=== PATIENT | male | born 1955 ===

== ENCOUNTER 2021-11-10 01:21 | Day surgery (SDC) | payer MEDICARE | END 2021-11-10 23:04 | disposition home or self-care (01) | LOC: WOUND 01:21 | DX: E11.622 Type 2 diabetes mellitus with other skin ulcer (principal); L97.825 Non-pressure chronic ulcer of other part of left lower leg with muscle involvement without evidence of necrosis; L97.222 Non-pressure chronic ulcer of left calf with fat layer exposed; I87.312 Chronic venous hypertension (idiopathic) with ulcer of left lower extremity; E11.59 Type 2 diabetes mellitus with other circulatory complications; G35 Multiple sclerosis; I87.2 Venous insufficiency (chronic) (peripheral) | CPT/HCPCS: A9270; Q4133 ==

== ENCOUNTER 2021-11-17 01:30 | Day surgery (SDC) | payer MEDICARE | END 2021-11-17 23:36 | disposition home or self-care (01) | LOC: WOUND 01:30 | DX: E11.621 Type 2 diabetes mellitus with foot ulcer (principal); L97.822 Non-pressure chronic ulcer of other part of left lower leg with fat layer exposed; I87.312 Chronic venous hypertension (idiopathic) with ulcer of left lower extremity; L97.222 Non-pressure chronic ulcer of left calf with fat layer exposed; E11.59 Type 2 diabetes mellitus with other circulatory complications; G35 Multiple sclerosis; I87.2 Venous insufficiency (chronic) (peripheral) | CPT/HCPCS: A9270; Q4133 ==

== ENCOUNTER 2021-11-24 02:13 | Day surgery (SDC) | payer MEDICARE | END 2021-11-24 23:22 | disposition home or self-care (01) | LOC: WOUND 02:13 | DX: E11.622 Type 2 diabetes mellitus with other skin ulcer (principal); I87.312 Chronic venous hypertension (idiopathic) with ulcer of left lower extremity; L97.222 Non-pressure chronic ulcer of left calf with fat layer exposed; E11.621 Type 2 diabetes mellitus with foot ulcer; L97.522 Non-pressure chronic ulcer of other part of left foot with fat layer exposed; G35 Multiple sclerosis; I87.2 Venous insufficiency (chronic) (peripheral); E11.59 Type 2 diabetes mellitus with other circulatory complications | CPT/HCPCS: A9270; Q4133 ==

== ENCOUNTER 2021-12-01 03:47 | Day surgery (SDC) | payer MEDICARE | END 2021-12-01 22:44 | disposition home or self-care (01) | LOC: WOUND 03:47 | DX: E11.622 Type 2 diabetes mellitus with other skin ulcer (principal); L97.822 Non-pressure chronic ulcer of other part of left lower leg with fat layer exposed; I87.312 Chronic venous hypertension (idiopathic) with ulcer of left lower extremity; E11.59 Type 2 diabetes mellitus with other circulatory complications; L97.222 Non-pressure chronic ulcer of left calf with fat layer exposed; E11.621 Type 2 diabetes mellitus with foot ulcer; L97.522 Non-pressure chronic ulcer of other part of left foot with fat layer exposed; G35 Multiple sclerosis; I87.2 Venous insufficiency (chronic) (peripheral) | CPT/HCPCS: A9270; Q4133 ==

== ENCOUNTER 2021-12-08 06:41 | Day surgery (SDC) | payer MEDICARE | END 2021-12-08 23:26 | disposition home or self-care (01) | LOC: WOUND 06:41 | DX: E11.622 Type 2 diabetes mellitus with other skin ulcer (principal); L97.822 Non-pressure chronic ulcer of other part of left lower leg with fat layer exposed; I87.312 Chronic venous hypertension (idiopathic) with ulcer of left lower extremity; L97.222 Non-pressure chronic ulcer of left calf with fat layer exposed; E11.59 Type 2 diabetes mellitus with other circulatory complications; G35 Multiple sclerosis; I87.2 Venous insufficiency (chronic) (peripheral) | CPT/HCPCS: A9270; Q4133 ==

== ENCOUNTER 2021-12-15 07:40 | Day surgery (SDC) | payer MEDICARE | END 2021-12-15 23:34 | disposition home or self-care (01) | LOC: WOUND 07:40 | DX: E11.622 Type 2 diabetes mellitus with other skin ulcer (principal); L97.822 Non-pressure chronic ulcer of other part of left lower leg with fat layer exposed; G35 Multiple sclerosis; I87.2 Venous insufficiency (chronic) (peripheral); I87.312 Chronic venous hypertension (idiopathic) with ulcer of left lower extremity | CPT/HCPCS: A9270; Q4133 ==

== ENCOUNTER 2022-01-05 02:02 | Day surgery (SDC) | payer MEDICARE, OTHER | END 2022-01-05 23:24 | disposition home or self-care (01) | LOC: WOUND 02:02 | DX: I87.313 Chronic venous hypertension (idiopathic) with ulcer of bilateral lower extremity (principal); L97.325 Non-pressure chronic ulcer of left ankle with muscle involvement without evidence of necrosis; L97.222 Non-pressure chronic ulcer of left calf with fat layer exposed; L97.812 Non-pressure chronic ulcer of other part of right lower leg with fat layer exposed; E11.622 Type 2 diabetes mellitus with other skin ulcer; I87.2 Venous insufficiency (chronic) (peripheral); E11.59 Type 2 diabetes mellitus with other circulatory complications; G35 Multiple sclerosis | CPT/HCPCS: A9270; Q4133 ==

== ENCOUNTER 2022-01-12 04:12 | Day surgery (SDC) | payer MEDICARE, OTHER | END 2022-01-12 22:50 | disposition home or self-care (01) | LOC: WOUND 04:12 | DX: I87.313 Chronic venous hypertension (idiopathic) with ulcer of bilateral lower extremity (principal); L97.222 Non-pressure chronic ulcer of left calf with fat layer exposed; L97.812 Non-pressure chronic ulcer of other part of right lower leg with fat layer exposed; L97.325 Non-pressure chronic ulcer of left ankle with muscle involvement without evidence of necrosis; E11.622 Type 2 diabetes mellitus with other skin ulcer; I87.2 Venous insufficiency (chronic) (peripheral); E11.59 Type 2 diabetes mellitus with other circulatory complications; G35 Multiple sclerosis | CPT/HCPCS: Q4133 ==

== ENCOUNTER 2022-01-19 02:44 | Day surgery (SDC) | payer MEDICARE, OTHER | END 2022-01-19 22:43 | disposition home or self-care (01) | LOC: WOUND 02:44 | DX: E11.622 Type 2 diabetes mellitus with other skin ulcer (principal); I87.312 Chronic venous hypertension (idiopathic) with ulcer of left lower extremity; L97.825 Non-pressure chronic ulcer of other part of left lower leg with muscle involvement without evidence of necrosis; I87.2 Venous insufficiency (chronic) (peripheral); E11.59 Type 2 diabetes mellitus with other circulatory complications; G35 Multiple sclerosis; Z86.718 Personal history of other venous thrombosis and embolism; Z87.2 Personal history of diseases of the skin and subcutaneous tissue | CPT/HCPCS: A9270; Q4133 ==

== ENCOUNTER 2022-01-26 02:23 | Day surgery (SDC) | payer MEDICARE, OTHER | END 2022-01-26 22:48 | disposition home or self-care (01) | LOC: WOUND 02:23 | DX: E11.622 Type 2 diabetes mellitus with other skin ulcer (principal); L97.822 Non-pressure chronic ulcer of other part of left lower leg with fat layer exposed; G35 Multiple sclerosis; I87.313 Chronic venous hypertension (idiopathic) with ulcer of bilateral lower extremity; L97.222 Non-pressure chronic ulcer of left calf with fat layer exposed; L97.812 Non-pressure chronic ulcer of other part of right lower leg with fat layer exposed; L97.325 Non-pressure chronic ulcer of left ankle with muscle involvement without evidence of necrosis | CPT/HCPCS: 11104 ==

== ENCOUNTER 2022-02-03 03:58 | Day surgery (SDC) | payer MEDICARE, OTHER | END 2022-02-03 22:48 | disposition home or self-care (01) | LOC: WOUND 03:58 | DX: E11.622 Type 2 diabetes mellitus with other skin ulcer (principal); I87.313 Chronic venous hypertension (idiopathic) with ulcer of bilateral lower extremity; L97.222 Non-pressure chronic ulcer of left calf with fat layer exposed; L97.212 Non-pressure chronic ulcer of right calf with fat layer exposed; L97.825 Non-pressure chronic ulcer of other part of left lower leg with muscle involvement without evidence of necrosis; L97.325 Non-pressure chronic ulcer of left ankle with muscle involvement without evidence of necrosis; I87.2 Venous insufficiency (chronic) (peripheral); E11.59 Type 2 diabetes mellitus with other circulatory complications; G35 Multiple sclerosis; Z86.718 Personal history of other venous thrombosis and embolism | CPT/HCPCS: 87070; 87075; 87205 ==

== ENCOUNTER 2022-02-09 02:15 | Day surgery (SDC) | payer MEDICARE, OTHER | END 2022-02-09 23:21 | disposition home or self-care (01) | LOC: WOUND 02:15 | DX: E11.622 Type 2 diabetes mellitus with other skin ulcer (principal); I87.313 Chronic venous hypertension (idiopathic) with ulcer of bilateral lower extremity; L97.222 Non-pressure chronic ulcer of left calf with fat layer exposed; L97.812 Non-pressure chronic ulcer of other part of right lower leg with fat layer exposed; L97.325 Non-pressure chronic ulcer of left ankle with muscle involvement without evidence of necrosis; I87.2 Venous insufficiency (chronic) (peripheral); E11.59 Type 2 diabetes mellitus with other circulatory complications; G35 Multiple sclerosis ==

== ENCOUNTER 2022-02-16 02:25 | Day surgery (SDC) | payer MEDICARE, OTHER | END 2022-02-16 23:07 | disposition home or self-care (01) | LOC: WOUND 02:25 | DX: E11.622 Type 2 diabetes mellitus with other skin ulcer (principal); L97.822 Non-pressure chronic ulcer of other part of left lower leg with fat layer exposed; I87.313 Chronic venous hypertension (idiopathic) with ulcer of bilateral lower extremity; L97.222 Non-pressure chronic ulcer of left calf with fat layer exposed; L97.812 Non-pressure chronic ulcer of other part of right lower leg with fat layer exposed; L97.325 Non-pressure chronic ulcer of left ankle with muscle involvement without evidence of necrosis; I87.2 Venous insufficiency (chronic) (peripheral); G35 Multiple sclerosis ==

== ENCOUNTER 2022-02-23 02:04 | Day surgery (SDC) | payer MEDICARE, OTHER | END 2022-02-23 23:04 | disposition home or self-care (01) | LOC: WOUND 02:04 | DX: E11.622 Type 2 diabetes mellitus with other skin ulcer (principal); I87.2 Venous insufficiency (chronic) (peripheral); L97.822 Non-pressure chronic ulcer of other part of left lower leg with fat layer exposed; I87.313 Chronic venous hypertension (idiopathic) with ulcer of bilateral lower extremity; L97.222 Non-pressure chronic ulcer of left calf with fat layer exposed; L97.325 Non-pressure chronic ulcer of left ankle with muscle involvement without evidence of necrosis; E11.59 Type 2 diabetes mellitus with other circulatory complications; G35 Multiple sclerosis | CPT/HCPCS: G0463 ==

== ENCOUNTER 2022-03-02 02:27 | Day surgery (SDC) | payer MEDICARE, OTHER | END 2022-03-02 22:59 | disposition home or self-care (01) | LOC: WOUND 02:27 | DX: E11.622 Type 2 diabetes mellitus with other skin ulcer (principal); L97.822 Non-pressure chronic ulcer of other part of left lower leg with fat layer exposed; I87.313 Chronic venous hypertension (idiopathic) with ulcer of bilateral lower extremity; L97.222 Non-pressure chronic ulcer of left calf with fat layer exposed; L97.812 Non-pressure chronic ulcer of other part of right lower leg with fat layer exposed; L97.325 Non-pressure chronic ulcer of left ankle with muscle involvement without evidence of necrosis; I87.2 Venous insufficiency (chronic) (peripheral); G35 Multiple sclerosis | CPT/HCPCS: G0463 ==

== ENCOUNTER 2022-03-11 00:27 | Day surgery (SDC) | payer MEDICARE, OTHER | END 2022-03-11 23:01 | disposition home or self-care (01) | LOC: WOUND 00:27 | DX: I87.313 Chronic venous hypertension (idiopathic) with ulcer of bilateral lower extremity (principal); E11.622 Type 2 diabetes mellitus with other skin ulcer; L97.222 Non-pressure chronic ulcer of left calf with fat layer exposed; L97.812 Non-pressure chronic ulcer of other part of right lower leg with fat layer exposed; L97.325 Non-pressure chronic ulcer of left ankle with muscle involvement without evidence of necrosis; I87.2 Venous insufficiency (chronic) (peripheral); E11.59 Type 2 diabetes mellitus with other circulatory complications; G35 Multiple sclerosis ==

== ENCOUNTER 2022-03-15 02:45 | Day surgery (SDC) | payer MEDICARE, OTHER | END 2022-03-15 22:59 | disposition home or self-care (01) | LOC: WOUND 02:45 | DX: E11.622 Type 2 diabetes mellitus with other skin ulcer (principal); I87.313 Chronic venous hypertension (idiopathic) with ulcer of bilateral lower extremity; L97.222 Non-pressure chronic ulcer of left calf with fat layer exposed; L97.812 Non-pressure chronic ulcer of other part of right lower leg with fat layer exposed; L97.325 Non-pressure chronic ulcer of left ankle with muscle involvement without evidence of necrosis; I87.2 Venous insufficiency (chronic) (peripheral); E11.59 Type 2 diabetes mellitus with other circulatory complications; G35 Multiple sclerosis | CPT/HCPCS: A9270 ==

== ENCOUNTER 2022-03-18 01:16 | Day surgery (SDC) | payer MEDICARE, OTHER | END 2022-03-18 23:02 | disposition home or self-care (01) | LOC: WOUND 01:16 | DX: E11.622 Type 2 diabetes mellitus with other skin ulcer (principal); L97.825 Non-pressure chronic ulcer of other part of left lower leg with muscle involvement without evidence of necrosis; I87.313 Chronic venous hypertension (idiopathic) with ulcer of bilateral lower extremity; L97.212 Non-pressure chronic ulcer of right calf with fat layer exposed; I87.2 Venous insufficiency (chronic) (peripheral); E11.59 Type 2 diabetes mellitus with other circulatory complications; G35 Multiple sclerosis ==

== ENCOUNTER 2022-03-25 02:09 | Day surgery (SDC) | payer MEDICARE, OTHER | END 2022-03-26 23:29 | disposition home or self-care (01) | LOC: WOUND 02:09 | DX: E11.622 Type 2 diabetes mellitus with other skin ulcer (principal); L97.822 Non-pressure chronic ulcer of other part of left lower leg with fat layer exposed; I87.313 Chronic venous hypertension (idiopathic) with ulcer of bilateral lower extremity; L97.222 Non-pressure chronic ulcer of left calf with fat layer exposed; L97.812 Non-pressure chronic ulcer of other part of right lower leg with fat layer exposed; G35 Multiple sclerosis ==

== ENCOUNTER 2022-04-01 00:10 | Day surgery (SDC) | payer MEDICARE, OTHER | END 2022-04-01 23:28 | disposition home or self-care (01) | LOC: WOUND 00:10 | DX: E11.622 Type 2 diabetes mellitus with other skin ulcer (principal); I87.313 Chronic venous hypertension (idiopathic) with ulcer of bilateral lower extremity; L97.222 Non-pressure chronic ulcer of left calf with fat layer exposed; L97.812 Non-pressure chronic ulcer of other part of right lower leg with fat layer exposed; L97.325 Non-pressure chronic ulcer of left ankle with muscle involvement without evidence of necrosis; I87.2 Venous insufficiency (chronic) (peripheral); E11.59 Type 2 diabetes mellitus with other circulatory complications; G35 Multiple sclerosis ==

== ENCOUNTER 2022-04-13 04:14 | Day surgery (SDC) | payer MEDICARE, OTHER | END 2022-04-13 22:59 | disposition home or self-care (01) | LOC: WOUND 04:14 | DX: E11.622 Type 2 diabetes mellitus with other skin ulcer (principal); L97.825 Non-pressure chronic ulcer of other part of left lower leg with muscle involvement without evidence of necrosis; I87.313 Chronic venous hypertension (idiopathic) with ulcer of bilateral lower extremity; L97.222 Non-pressure chronic ulcer of left calf with fat layer exposed; L97.812 Non-pressure chronic ulcer of other part of right lower leg with fat layer exposed; L97.325 Non-pressure chronic ulcer of left ankle with muscle involvement without evidence of necrosis; I87.2 Venous insufficiency (chronic) (peripheral); E11.59 Type 2 diabetes mellitus with other circulatory complications; G35 Multiple sclerosis | CPT/HCPCS: A9270; G0463 ==

== ENCOUNTER 2022-04-20 05:34 | Day surgery (SDC) | payer MEDICARE, OTHER | END 2022-04-20 22:59 | disposition home or self-care (01) | LOC: WOUND 05:34 | DX: E11.621 Type 2 diabetes mellitus with foot ulcer (principal); L97.522 Non-pressure chronic ulcer of other part of left foot with fat layer exposed; L97.525 Non-pressure chronic ulcer of other part of left foot with muscle involvement without evidence of necrosis; L97.812 Non-pressure chronic ulcer of other part of right lower leg with fat layer exposed; I87.313 Chronic venous hypertension (idiopathic) with ulcer of bilateral lower extremity; I87.2 Venous insufficiency (chronic) (peripheral); E11.59 Type 2 diabetes mellitus with other circulatory complications; G35 Multiple sclerosis ==

== ENCOUNTER 2022-04-29 01:48 | Day surgery (SDC) | payer MEDICARE, OTHER | END 2022-04-29 22:41 | disposition home or self-care (01) | LOC: WOUND 01:48 | DX: E11.622 Type 2 diabetes mellitus with other skin ulcer (principal); L97.222 Non-pressure chronic ulcer of left calf with fat layer exposed; L97.812 Non-pressure chronic ulcer of other part of right lower leg with fat layer exposed; L97.325 Non-pressure chronic ulcer of left ankle with muscle involvement without evidence of necrosis; I87.2 Venous insufficiency (chronic) (peripheral); E11.59 Type 2 diabetes mellitus with other circulatory complications; G35 Multiple sclerosis; I87.313 Chronic venous hypertension (idiopathic) with ulcer of bilateral lower extremity | CPT/HCPCS: A9270 ==

== ENCOUNTER 2022-05-11 00:43 | Day surgery (SDC) | payer MEDICARE, OTHER | END 2022-05-11 22:43 | disposition home or self-care (01) | LOC: WOUND 00:43 | DX: E11.622 Type 2 diabetes mellitus with other skin ulcer (principal); L97.822 Non-pressure chronic ulcer of other part of left lower leg with fat layer exposed; I87.313 Chronic venous hypertension (idiopathic) with ulcer of bilateral lower extremity; L97.222 Non-pressure chronic ulcer of left calf with fat layer exposed; L97.325 Non-pressure chronic ulcer of left ankle with muscle involvement without evidence of necrosis; I87.2 Venous insufficiency (chronic) (peripheral); E11.59 Type 2 diabetes mellitus with other circulatory complications; G35 Multiple sclerosis | CPT/HCPCS: A9270 ==

== ENCOUNTER 2022-05-18 08:00 | Day surgery (SDC) | payer MEDICARE, OTHER | END 2022-05-18 23:59 | disposition home or self-care (01) | LOC: WOUND 08:00 | DX: E11.622 Type 2 diabetes mellitus with other skin ulcer (principal); I87.313 Chronic venous hypertension (idiopathic) with ulcer of bilateral lower extremity; I87.2 Venous insufficiency (chronic) (peripheral); L97.822 Non-pressure chronic ulcer of other part of left lower leg with fat layer exposed; L97.222 Non-pressure chronic ulcer of left calf with fat layer exposed; L97.812 Non-pressure chronic ulcer of other part of right lower leg with fat layer exposed; L97.325 Non-pressure chronic ulcer of left ankle with muscle involvement without evidence of necrosis; E11.59 Type 2 diabetes mellitus with other circulatory complications; G35 Multiple sclerosis | CPT/HCPCS: A9270 ==

== ENCOUNTER 2022-06-01 01:27 | Day surgery (SDC) | payer MEDICARE, OTHER | END 2022-06-01 22:43 | disposition home or self-care (01) | LOC: WOUND 01:27 | DX: E11.622 Type 2 diabetes mellitus with other skin ulcer (principal); I87.2 Venous insufficiency (chronic) (peripheral); L97.822 Non-pressure chronic ulcer of other part of left lower leg with fat layer exposed; I87.313 Chronic venous hypertension (idiopathic) with ulcer of bilateral lower extremity; L97.222 Non-pressure chronic ulcer of left calf with fat layer exposed; L97.812 Non-pressure chronic ulcer of other part of right lower leg with fat layer exposed; L97.325 Non-pressure chronic ulcer of left ankle with muscle involvement without evidence of necrosis; E11.59 Type 2 diabetes mellitus with other circulatory complications; G35 Multiple sclerosis ==

== ENCOUNTER 2022-06-09 09:06 | Day surgery (SDC) | payer MEDICARE, OTHER | END 2022-06-09 22:34 | disposition home or self-care (01) | LOC: WOUND 09:06 | DX: E11.622 Type 2 diabetes mellitus with other skin ulcer (principal); L97.822 Non-pressure chronic ulcer of other part of left lower leg with fat layer exposed; I87.313 Chronic venous hypertension (idiopathic) with ulcer of bilateral lower extremity; L97.222 Non-pressure chronic ulcer of left calf with fat layer exposed; L97.812 Non-pressure chronic ulcer of other part of right lower leg with fat layer exposed; L97.325 Non-pressure chronic ulcer of left ankle with muscle involvement without evidence of necrosis; I87.2 Venous insufficiency (chronic) (peripheral); G35 Multiple sclerosis ==

== ENCOUNTER 2022-06-15 01:57 | Day surgery (SDC) | payer MEDICARE, OTHER | END 2022-06-15 22:35 | disposition home or self-care (01) | LOC: WOUND 01:57 | DX: E11.622 Type 2 diabetes mellitus with other skin ulcer (principal); L97.822 Non-pressure chronic ulcer of other part of left lower leg with fat layer exposed; G35 Multiple sclerosis; I87.313 Chronic venous hypertension (idiopathic) with ulcer of bilateral lower extremity; L97.222 Non-pressure chronic ulcer of left calf with fat layer exposed; I87.2 Venous insufficiency (chronic) (peripheral) | CPT/HCPCS: G0463 ==

== ENCOUNTER 2022-06-22 00:46 | Day surgery (SDC) | payer MEDICARE, OTHER | END 2022-06-22 22:57 | disposition home or self-care (01) | LOC: WOUND 00:46 | DX: E11.622 Type 2 diabetes mellitus with other skin ulcer (principal); L97.822 Non-pressure chronic ulcer of other part of left lower leg with fat layer exposed; I87.313 Chronic venous hypertension (idiopathic) with ulcer of bilateral lower extremity; L97.222 Non-pressure chronic ulcer of left calf with fat layer exposed; L97.325 Non-pressure chronic ulcer of left ankle with muscle involvement without evidence of necrosis; I87.2 Venous insufficiency (chronic) (peripheral); G35 Multiple sclerosis ==

== ENCOUNTER 2022-06-30 01:47 | Day surgery (SDC) | payer MEDICARE, OTHER | END 2022-06-30 22:34 | disposition home or self-care (01) | LOC: WOUND 01:47 | DX: E11.622 Type 2 diabetes mellitus with other skin ulcer (principal); I87.313 Chronic venous hypertension (idiopathic) with ulcer of bilateral lower extremity; L97.222 Non-pressure chronic ulcer of left calf with fat layer exposed; L97.812 Non-pressure chronic ulcer of other part of right lower leg with fat layer exposed; L97.325 Non-pressure chronic ulcer of left ankle with muscle involvement without evidence of necrosis; I87.2 Venous insufficiency (chronic) (peripheral); E11.59 Type 2 diabetes mellitus with other circulatory complications; G35 Multiple sclerosis ==

== ENCOUNTER 2022-07-13 02:24 | Day surgery (SDC) | payer MEDICARE, OTHER | END 2022-07-13 22:39 | disposition home or self-care (01) | LOC: WOUND 02:24 | DX: E11.622 Type 2 diabetes mellitus with other skin ulcer (principal); I87.313 Chronic venous hypertension (idiopathic) with ulcer of bilateral lower extremity; L97.825 Non-pressure chronic ulcer of other part of left lower leg with muscle involvement without evidence of necrosis; L97.222 Non-pressure chronic ulcer of left calf with fat layer exposed; L97.812 Non-pressure chronic ulcer of other part of right lower leg with fat layer exposed; L97.325 Non-pressure chronic ulcer of left ankle with muscle involvement without evidence of necrosis; I87.2 Venous insufficiency (chronic) (peripheral); E11.59 Type 2 diabetes mellitus with other circulatory complications; G35 Multiple sclerosis | CPT/HCPCS: Q4196 ==

== ENCOUNTER 2022-07-20 01:20 | Day surgery (SDC) | payer MEDICARE, OTHER | END 2022-07-20 22:59 | disposition home or self-care (01) | LOC: WOUND 01:20 | DX: E11.622 Type 2 diabetes mellitus with other skin ulcer (principal); I87.313 Chronic venous hypertension (idiopathic) with ulcer of bilateral lower extremity; L97.222 Non-pressure chronic ulcer of left calf with fat layer exposed; L97.812 Non-pressure chronic ulcer of other part of right lower leg with fat layer exposed; L97.325 Non-pressure chronic ulcer of left ankle with muscle involvement without evidence of necrosis; G35 Multiple sclerosis; I87.2 Venous insufficiency (chronic) (peripheral); E11.59 Type 2 diabetes mellitus with other circulatory complications | CPT/HCPCS: Q4196 ==

== ENCOUNTER 2022-07-27 02:41 | Day surgery (SDC) | payer MEDICARE, OTHER | END 2022-07-27 23:27 | disposition home or self-care (01) | LOC: WOUND 02:41 | DX: I87.313 Chronic venous hypertension (idiopathic) with ulcer of bilateral lower extremity (principal); E11.622 Type 2 diabetes mellitus with other skin ulcer; L97.222 Non-pressure chronic ulcer of left calf with fat layer exposed; L97.325 Non-pressure chronic ulcer of left ankle with muscle involvement without evidence of necrosis; I87.2 Venous insufficiency (chronic) (peripheral); E11.59 Type 2 diabetes mellitus with other circulatory complications; G35 Multiple sclerosis | CPT/HCPCS: Q4196 ==

== ENCOUNTER 2022-08-10 05:43 | Day surgery (SDC) | payer MEDICARE, OTHER | END 2022-08-10 22:55 | disposition home or self-care (01) | LOC: WOUND 05:43 | DX: E11.622 Type 2 diabetes mellitus with other skin ulcer (principal); L97.823 Non-pressure chronic ulcer of other part of left lower leg with necrosis of muscle; E11.621 Type 2 diabetes mellitus with foot ulcer; L97.522 Non-pressure chronic ulcer of other part of left foot with fat layer exposed; I87.313 Chronic venous hypertension (idiopathic) with ulcer of bilateral lower extremity; L97.222 Non-pressure chronic ulcer of left calf with fat layer exposed; L97.325 Non-pressure chronic ulcer of left ankle with muscle involvement without evidence of necrosis; I87.2 Venous insufficiency (chronic) (peripheral); E11.59 Type 2 diabetes mellitus with other circulatory complications; G35 Multiple sclerosis | CPT/HCPCS: Q4196 ==

== ENCOUNTER 2022-08-24 00:40 | Day surgery (SDC) | payer MEDICARE, OTHER | END 2022-08-24 22:39 | disposition home or self-care (01) | LOC: WOUND 00:40 | DX: E11.622 Type 2 diabetes mellitus with other skin ulcer (principal); L97.822 Non-pressure chronic ulcer of other part of left lower leg with fat layer exposed; I87.313 Chronic venous hypertension (idiopathic) with ulcer of bilateral lower extremity; L97.222 Non-pressure chronic ulcer of left calf with fat layer exposed; L97.325 Non-pressure chronic ulcer of left ankle with muscle involvement without evidence of necrosis; I87.2 Venous insufficiency (chronic) (peripheral); E11.59 Type 2 diabetes mellitus with other circulatory complications; G35 Multiple sclerosis | CPT/HCPCS: Q4196 ==

== ENCOUNTER 2022-08-31 03:48 | Day surgery (SDC) | payer MEDICARE, OTHER | END 2022-08-31 22:50 | disposition home or self-care (01) | LOC: WOUND 03:48 | DX: E11.622 Type 2 diabetes mellitus with other skin ulcer (principal); I87.313 Chronic venous hypertension (idiopathic) with ulcer of bilateral lower extremity; L97.325 Non-pressure chronic ulcer of left ankle with muscle involvement without evidence of necrosis; L97.222 Non-pressure chronic ulcer of left calf with fat layer exposed; I87.2 Venous insufficiency (chronic) (peripheral); E11.59 Type 2 diabetes mellitus with other circulatory complications; G35 Multiple sclerosis | CPT/HCPCS: Q4196 ==

== ENCOUNTER 2022-09-07 03:51 | Day surgery (SDC) | payer MEDICARE, OTHER | END 2022-09-07 22:43 | disposition home or self-care (01) | LOC: WOUND 03:51 | DX: E11.622 Type 2 diabetes mellitus with other skin ulcer (principal); L97.822 Non-pressure chronic ulcer of other part of left lower leg with fat layer exposed; L97.222 Non-pressure chronic ulcer of left calf with fat layer exposed; L97.325 Non-pressure chronic ulcer of left ankle with muscle involvement without evidence of necrosis; I87.2 Venous insufficiency (chronic) (peripheral); E11.59 Type 2 diabetes mellitus with other circulatory complications; G35 Multiple sclerosis; I87.312 Chronic venous hypertension (idiopathic) with ulcer of left lower extremity | CPT/HCPCS: Q4196 ==

== ENCOUNTER → 2022-09-14 | Day surgery (SDC) | payer MEDICARE, OTHER | LOC: WOUND 03:12 | DX: E11.622 Type 2 diabetes mellitus with other skin ulcer (principal); L97.822 Non-pressure chronic ulcer of other part of left lower leg with fat layer exposed; I87.313 Chronic venous hypertension (idiopathic) with ulcer of bilateral lower extremity; L97.325 Non-pressure chronic ulcer of left ankle with muscle involvement without evidence of necrosis; I87.2 Venous insufficiency (chronic) (peripheral); E11.59 Type 2 diabetes mellitus with other circulatory complications; G35 Multiple sclerosis | CPT/HCPCS: Q4196 ==

== ENCOUNTER 2022-10-05 04:42 | Day surgery (SDC) | payer MEDICARE, OTHER | END 2022-10-05 22:41 | disposition home or self-care (01) | LOC: WOUND 04:42 | DX: E11.622 Type 2 diabetes mellitus with other skin ulcer (principal); I87.313 Chronic venous hypertension (idiopathic) with ulcer of bilateral lower extremity; L97.825 Non-pressure chronic ulcer of other part of left lower leg with muscle involvement without evidence of necrosis; L97.222 Non-pressure chronic ulcer of left calf with fat layer exposed; L97.325 Non-pressure chronic ulcer of left ankle with muscle involvement without evidence of necrosis; I87.2 Venous insufficiency (chronic) (peripheral); E11.59 Type 2 diabetes mellitus with other circulatory complications; G35 Multiple sclerosis | CPT/HCPCS: G0463 ==

== ENCOUNTER 2022-10-12 01:53 | Day surgery (SDC) | payer MEDICARE, OTHER | END 2022-10-12 22:46 | disposition home or self-care (01) | LOC: WOUND 01:53 | DX: E11.622 Type 2 diabetes mellitus with other skin ulcer (principal); I87.312 Chronic venous hypertension (idiopathic) with ulcer of left lower extremity; L97.825 Non-pressure chronic ulcer of other part of left lower leg with muscle involvement without evidence of necrosis; L97.222 Non-pressure chronic ulcer of left calf with fat layer exposed; L97.325 Non-pressure chronic ulcer of left ankle with muscle involvement without evidence of necrosis; I87.2 Venous insufficiency (chronic) (peripheral); E11.59 Type 2 diabetes mellitus with other circulatory complications; G35 Multiple sclerosis | CPT/HCPCS: A9270 ==

== ENCOUNTER 2022-10-19 04:13 | Day surgery (SDC) | payer MEDICARE, OTHER | END 2022-10-19 22:58 | disposition home or self-care (01) | LOC: WOUND 04:13 | DX: E11.622 Type 2 diabetes mellitus with other skin ulcer (principal); L97.822 Non-pressure chronic ulcer of other part of left lower leg with fat layer exposed; L97.222 Non-pressure chronic ulcer of left calf with fat layer exposed; I87.312 Chronic venous hypertension (idiopathic) with ulcer of left lower extremity; I87.2 Venous insufficiency (chronic) (peripheral); G35 Multiple sclerosis; E11.59 Type 2 diabetes mellitus with other circulatory complications ==

== ENCOUNTER 2022-10-26 01:30 | Day surgery (SDC) | payer MEDICARE, OTHER | END 2022-10-26 23:10 | disposition home or self-care (01) | LOC: WOUND 01:30 | DX: E11.622 Type 2 diabetes mellitus with other skin ulcer (principal); I87.2 Venous insufficiency (chronic) (peripheral); L97.822 Non-pressure chronic ulcer of other part of left lower leg with fat layer exposed; I87.313 Chronic venous hypertension (idiopathic) with ulcer of bilateral lower extremity; L97.325 Non-pressure chronic ulcer of left ankle with muscle involvement without evidence of necrosis; G35 Multiple sclerosis ==

== ENCOUNTER 2022-11-02 03:00 | Day surgery (SDC) | payer MEDICARE, OTHER | END 2022-11-02 22:35 | disposition home or self-care (01) | LOC: WOUND 03:00 | DX: E11.622 Type 2 diabetes mellitus with other skin ulcer (principal); L97.222 Non-pressure chronic ulcer of left calf with fat layer exposed; L97.325 Non-pressure chronic ulcer of left ankle with muscle involvement without evidence of necrosis; I87.313 Chronic venous hypertension (idiopathic) with ulcer of bilateral lower extremity; I87.2 Venous insufficiency (chronic) (peripheral); E11.59 Type 2 diabetes mellitus with other circulatory complications; G35 Multiple sclerosis ==

== ENCOUNTER 2022-11-09 02:31 | Day surgery (SDC) | payer MEDICARE, OTHER | END 2022-11-09 22:57 | disposition home or self-care (01) | LOC: WOUND 02:31 | DX: E11.622 Type 2 diabetes mellitus with other skin ulcer (principal); L97.822 Non-pressure chronic ulcer of other part of left lower leg with fat layer exposed; I87.2 Venous insufficiency (chronic) (peripheral); G35 Multiple sclerosis; L97.222 Non-pressure chronic ulcer of left calf with fat layer exposed; L97.325 Non-pressure chronic ulcer of left ankle with muscle involvement without evidence of necrosis; I87.312 Chronic venous hypertension (idiopathic) with ulcer of left lower extremity ==

== ENCOUNTER 2022-11-16 05:07 | Day surgery (SDC) | payer MEDICARE, OTHER | END 2022-11-16 22:41 | disposition home or self-care (01) | LOC: WOUND 05:07 | DX: E11.622 Type 2 diabetes mellitus with other skin ulcer (principal); I87.313 Chronic venous hypertension (idiopathic) with ulcer of bilateral lower extremity; L97.222 Non-pressure chronic ulcer of left calf with fat layer exposed; L97.325 Non-pressure chronic ulcer of left ankle with muscle involvement without evidence of necrosis; I87.2 Venous insufficiency (chronic) (peripheral); E11.59 Type 2 diabetes mellitus with other circulatory complications; G35 Multiple sclerosis | CPT/HCPCS: A9270 ==

== ENCOUNTER 2022-11-23 03:03 | Day surgery (SDC) | payer MEDICARE, OTHER | END 2022-11-23 22:47 | disposition home or self-care (01) | LOC: WOUND 03:03 | DX: E11.622 Type 2 diabetes mellitus with other skin ulcer (principal); L97.822 Non-pressure chronic ulcer of other part of left lower leg with fat layer exposed; I87.2 Venous insufficiency (chronic) (peripheral); I87.312 Chronic venous hypertension (idiopathic) with ulcer of left lower extremity; L97.222 Non-pressure chronic ulcer of left calf with fat layer exposed; L97.325 Non-pressure chronic ulcer of left ankle with muscle involvement without evidence of necrosis; E11.59 Type 2 diabetes mellitus with other circulatory complications; G35 Multiple sclerosis ==

== ENCOUNTER 2022-11-30 01:21 | Day surgery (SDC) | payer MEDICARE, OTHER | END 2022-11-30 22:45 | disposition home or self-care (01) | LOC: WOUND 01:21 | DX: I87.313 Chronic venous hypertension (idiopathic) with ulcer of bilateral lower extremity (principal); E11.622 Type 2 diabetes mellitus with other skin ulcer; L97.922 Non-pressure chronic ulcer of unspecified part of left lower leg with fat layer exposed; E11.59 Type 2 diabetes mellitus with other circulatory complications; G35 Multiple sclerosis ==

== ENCOUNTER 2022-12-07 02:09 | Day surgery (SDC) | payer MEDICARE, OTHER | END 2022-12-07 22:57 | disposition home or self-care (01) | LOC: WOUND 02:09 | DX: E11.622 Type 2 diabetes mellitus with other skin ulcer (principal); L97.822 Non-pressure chronic ulcer of other part of left lower leg with fat layer exposed; I87.312 Chronic venous hypertension (idiopathic) with ulcer of left lower extremity; L97.325 Non-pressure chronic ulcer of left ankle with muscle involvement without evidence of necrosis; I87.2 Venous insufficiency (chronic) (peripheral); G35 Multiple sclerosis ==

== ENCOUNTER 2022-12-21 04:46 | Day surgery (SDC) | payer MEDICARE, OTHER | END 2022-12-21 22:43 | disposition home or self-care (01) | LOC: WOUND 04:46 | DX: E11.622 Type 2 diabetes mellitus with other skin ulcer (principal); L97.822 Non-pressure chronic ulcer of other part of left lower leg with fat layer exposed; I87.312 Chronic venous hypertension (idiopathic) with ulcer of left lower extremity; L97.222 Non-pressure chronic ulcer of left calf with fat layer exposed; L97.325 Non-pressure chronic ulcer of left ankle with muscle involvement without evidence of necrosis; I87.2 Venous insufficiency (chronic) (peripheral); E11.59 Type 2 diabetes mellitus with other circulatory complications; G35 Multiple sclerosis ==

== ENCOUNTER 2023-01-04 02:26 | Day surgery (SDC) | payer MEDICARE, OTHER | END 2023-01-04 23:34 | disposition home or self-care (01) | LOC: WOUND 02:26 | DX: E11.622 Type 2 diabetes mellitus with other skin ulcer (principal); L97.822 Non-pressure chronic ulcer of other part of left lower leg with fat layer exposed; I87.313 Chronic venous hypertension (idiopathic) with ulcer of bilateral lower extremity; E11.59 Type 2 diabetes mellitus with other circulatory complications; G35 Multiple sclerosis ==

== ENCOUNTER 2023-01-11 02:38 | Day surgery (SDC) | payer MEDICARE, OTHER | END 2023-01-11 23:05 | disposition home or self-care (01) | LOC: WOUND 02:38 | DX: E11.622 Type 2 diabetes mellitus with other skin ulcer (principal); L97.822 Non-pressure chronic ulcer of other part of left lower leg with fat layer exposed; I87.313 Chronic venous hypertension (idiopathic) with ulcer of bilateral lower extremity; E11.59 Type 2 diabetes mellitus with other circulatory complications; G35 Multiple sclerosis | CPT/HCPCS: A9270 ==

== ENCOUNTER 2023-01-18 05:20 | Day surgery (SDC) | payer MEDICARE, OTHER | END 2023-01-18 22:46 | disposition home or self-care (01) | LOC: WOUND 05:20 | DX: E11.622 Type 2 diabetes mellitus with other skin ulcer (principal); L97.822 Non-pressure chronic ulcer of other part of left lower leg with fat layer exposed; I87.312 Chronic venous hypertension (idiopathic) with ulcer of left lower extremity; L97.325 Non-pressure chronic ulcer of left ankle with muscle involvement without evidence of necrosis; L97.222 Non-pressure chronic ulcer of left calf with fat layer exposed; I87.2 Venous insufficiency (chronic) (peripheral); E11.59 Type 2 diabetes mellitus with other circulatory complications; G35 Multiple sclerosis ==

== ENCOUNTER 2023-01-25 02:52 | Day surgery (SDC) | payer MEDICARE, OTHER | END 2023-01-25 22:43 | disposition home or self-care (01) | LOC: WOUND 02:52 | DX: E11.622 Type 2 diabetes mellitus with other skin ulcer (principal); L97.822 Non-pressure chronic ulcer of other part of left lower leg with fat layer exposed; I87.2 Venous insufficiency (chronic) (peripheral); L97.812 Non-pressure chronic ulcer of other part of right lower leg with fat layer exposed; I87.313 Chronic venous hypertension (idiopathic) with ulcer of bilateral lower extremity; G35 Multiple sclerosis ==

== ENCOUNTER 2023-02-01 04:53 | Day surgery (SDC) | payer MEDICARE, OTHER | END 2023-02-01 23:12 | disposition home or self-care (01) | LOC: WOUND 04:53 | DX: E11.622 Type 2 diabetes mellitus with other skin ulcer (principal); L97.822 Non-pressure chronic ulcer of other part of left lower leg with fat layer exposed; L97.812 Non-pressure chronic ulcer of other part of right lower leg with fat layer exposed; I87.313 Chronic venous hypertension (idiopathic) with ulcer of bilateral lower extremity; L97.222 Non-pressure chronic ulcer of left calf with fat layer exposed; L97.325 Non-pressure chronic ulcer of left ankle with muscle involvement without evidence of necrosis; I87.2 Venous insufficiency (chronic) (peripheral); E11.59 Type 2 diabetes mellitus with other circulatory complications; G35 Multiple sclerosis | CPT/HCPCS: A9270 ==

== ENCOUNTER 2023-02-08 02:06 | Day surgery (SDC) | payer MEDICARE, OTHER | END 2023-02-08 22:47 | disposition home or self-care (01) | LOC: WOUND 02:06 | DX: E11.622 Type 2 diabetes mellitus with other skin ulcer (principal); L97.822 Non-pressure chronic ulcer of other part of left lower leg with fat layer exposed; S81.811A Laceration without foreign body, right lower leg, initial encounter; I87.313 Chronic venous hypertension (idiopathic) with ulcer of bilateral lower extremity; E11.59 Type 2 diabetes mellitus with other circulatory complications; L97.325 Non-pressure chronic ulcer of left ankle with muscle involvement without evidence of necrosis; G35 Multiple sclerosis; I73.9 Peripheral vascular disease, unspecified; X58.XXXA Exposure to other specified factors, initial encounter | CPT/HCPCS: 87070; 87077; 87147; 87186; 87205; A9270 ==

== ENCOUNTER → 2023-02-10 | Outpatient (CLI) | payer MEDICARE, OTHER ==
[2023-02-10 13:14] LABS: BASOPHILS ABSOLUTE AUTO 0.07 K/mm3 (0.00-0.23); BASOPHILS PERCENT AUTO 1 % (0-2); EOSINOPHILS ABSOLUTE AUTO 0.21 K/mm3 (0.00-0.68); EOSINOPHILS PERCENT AUTO 2 % (0-6); Hematocrit 40.3 % (37.0-53.0); Hemoglobin 13.9 g/dL (13.5-17.5); IMMATURE GRAN ABSOLUTE AUTO 0.02 K/mm3 (0.00-0.10); IMMATURE GRAN PERCENT AUTO 0 % (0-1); LYMPHOCYTES ABSOLUTE AUTO 1.89 K/mm3 (0.84-5.20); LYMPHOCYTES PERCENT AUTO 20 % (21-46); MONOCYTES PERCENT AUTO 10 % (4-13); Mean Corpuscular HGB 32.3 pg (26.0-34.0); Mean Corpuscular HGB Conc 34.5 g/dL (31.5-36.5); Mean Corpuscular Volume 94 fL (80-100); Mean Platelet Volume 9.4 fL (9.1-12.4); NEUTROPHILS ABSOLUTE AUTO 6.17 K/mm3 (1.96-9.15); NEUTROPHILS PERCENT AUTO 67 % (41-73); Platelet Count 232 K/mm3 (150-400); RDW Coefficient Variation 13.1 % (11.7-14.2); RDW Standard Deviation 44.6 fL (35.1-46.3); White Blood Cell Count 9.26 K/mm3 (4.00-11.30)
[2023-02-10 14:25] LABS: Alanine Aminotransfer (ALT/SGP 35 U/L (12-78); Albumin, Blood 3.5 g/dL (3.4-5.0); Albumin/Globulin Ratio 0.8 (0.8-1.8); Alk Phos 66 U/L (50-136); Anion Gap 5 mmol/L (6-16); Aspartate Aminotrans (AST/SGOT 27 U/L (12-37); Bilirubin, Total 0.4 mg/dL (0.1-1.0); Blood Urea Nitrogen 42 mg/dL (8-24); Bun/Creatinine Ratio 24.9 (12.0-20.0); CHOL/HDL RATIO 4.4; CO2, Blood 25 mmol/L (21-32); Calcium, Blood 9.2 mg/dL (8.5-10.1); Chloride, Blood 109 mmol/L (98-108); Cholesterol 193 mg/dL (50-200); Creatinine, Blood 1.69 mg/dL (0.60-1.20); Free Thyroxine 1.19 ng/dL (0.70-1.60); Globulin, Blood 4.4 g/dL (2.2-4.0); Glomerular Filtration Rate 45 (60-); Glucose, Blood 115 mg/dL (70-99); HDL Cholesterol 44 mg/dL (>39); LDL/HDL RATIO 2.7; Low Density Lipoprotein Chol 119 mg/dL (0-110); Potassium, Blood 4.3 mmol/L (3.5-5.5); Sodium, Blood 139 mmol/L (136-145); Total Protein, Blood 7.9 g/dL (6.4-8.2); Triglycerides 152 mg/dL (30-160); Triiodothyronine, Free 2.34 pg/mL (2.18-3.98); Very Low Density Lipoprot Chol 30 mg/dL (6-32)
== END | disposition home or self-care (01) ==
LOC: LAB SHORT 12:26 → LAB 12:26
PROVIDERS: Nurse Practitioner Family
DX: Z13.220 Encounter for screening for lipoid disorders (principal); E03.9 Hypothyroidism, unspecified; I10 Essential (primary) hypertension; E55.9 Vitamin D deficiency, unspecified
CPT/HCPCS: 80053; 80061; 82306; 84439; 84443; 84481; 85025

== ENCOUNTER 2023-02-15 06:19 | Day surgery (SDC) | payer MEDICARE, OTHER | END 2023-02-15 22:49 | disposition home or self-care (01) | LOC: WOUND 06:19 | DX: E11.622 Type 2 diabetes mellitus with other skin ulcer (principal); I87.2 Venous insufficiency (chronic) (peripheral); L97.822 Non-pressure chronic ulcer of other part of left lower leg with fat layer exposed; I87.313 Chronic venous hypertension (idiopathic) with ulcer of bilateral lower extremity; L97.325 Non-pressure chronic ulcer of left ankle with muscle involvement without evidence of necrosis; G35 Multiple sclerosis ==

== ENCOUNTER 2023-02-22 02:35 | Day surgery (SDC) | payer MEDICARE, OTHER | END 2023-02-22 22:41 | disposition home or self-care (01) | LOC: WOUND 02:35 | DX: E11.622 Type 2 diabetes mellitus with other skin ulcer (principal); L97.822 Non-pressure chronic ulcer of other part of left lower leg with fat layer exposed; L97.812 Non-pressure chronic ulcer of other part of right lower leg with fat layer exposed; I87.313 Chronic venous hypertension (idiopathic) with ulcer of bilateral lower extremity; L97.325 Non-pressure chronic ulcer of left ankle with muscle involvement without evidence of necrosis; I87.2 Venous insufficiency (chronic) (peripheral); E11.59 Type 2 diabetes mellitus with other circulatory complications; G35 Multiple sclerosis ==

== ENCOUNTER 2023-03-01 01:50 | Day surgery (SDC) | payer MEDICARE, OTHER | END 2023-03-01 22:34 | disposition home or self-care (01) | LOC: WOUND 01:50 | DX: I87.313 Chronic venous hypertension (idiopathic) with ulcer of bilateral lower extremity (principal); E11.622 Type 2 diabetes mellitus with other skin ulcer; L97.822 Non-pressure chronic ulcer of other part of left lower leg with fat layer exposed; S81.811D Laceration without foreign body, right lower leg, subsequent encounter; E11.59 Type 2 diabetes mellitus with other circulatory complications; G35 Multiple sclerosis; X58.XXXD Exposure to other specified factors, subsequent encounter | CPT/HCPCS: 87071; 87075; 87077; 87147; 87186; 87205 ==

== ENCOUNTER 2023-03-15 03:27 | Day surgery (SDC) | payer MEDICARE, OTHER | END 2023-03-15 22:48 | disposition home or self-care (01) | LOC: WOUND 03:27 | DX: E11.622 Type 2 diabetes mellitus with other skin ulcer (principal); L97.822 Non-pressure chronic ulcer of other part of left lower leg with fat layer exposed; I87.313 Chronic venous hypertension (idiopathic) with ulcer of bilateral lower extremity; E11.59 Type 2 diabetes mellitus with other circulatory complications; G35 Multiple sclerosis | CPT/HCPCS: G0463 ==

== ENCOUNTER 2023-03-22 01:01 | Day surgery (SDC) | payer MEDICARE, OTHER | END 2023-03-22 22:44 | disposition home or self-care (01) | LOC: WOUND 01:01 | DX: I87.313 Chronic venous hypertension (idiopathic) with ulcer of bilateral lower extremity (principal); E11.622 Type 2 diabetes mellitus with other skin ulcer; L97.222 Non-pressure chronic ulcer of left calf with fat layer exposed; L97.325 Non-pressure chronic ulcer of left ankle with muscle involvement without evidence of necrosis; E11.59 Type 2 diabetes mellitus with other circulatory complications; G35 Multiple sclerosis ==

== ENCOUNTER 2023-03-29 05:22 | Day surgery (SDC) | payer MEDICARE, OTHER | END 2023-03-29 22:48 | disposition home or self-care (01) | LOC: WOUND 05:22 | DX: E11.622 Type 2 diabetes mellitus with other skin ulcer (principal); I87.313 Chronic venous hypertension (idiopathic) with ulcer of bilateral lower extremity; L97.222 Non-pressure chronic ulcer of left calf with fat layer exposed; L97.325 Non-pressure chronic ulcer of left ankle with muscle involvement without evidence of necrosis; E11.59 Type 2 diabetes mellitus with other circulatory complications; I87.2 Venous insufficiency (chronic) (peripheral); G35 Multiple sclerosis | CPT/HCPCS: A9270 ==

== ENCOUNTER 2023-04-12 01:16 | Day surgery (SDC) | payer MEDICARE, OTHER | END 2023-04-12 22:46 | disposition home or self-care (01) | LOC: WOUND 01:16 | DX: E11.622 Type 2 diabetes mellitus with other skin ulcer (principal); L97.822 Non-pressure chronic ulcer of other part of left lower leg with fat layer exposed; I87.313 Chronic venous hypertension (idiopathic) with ulcer of bilateral lower extremity; L97.222 Non-pressure chronic ulcer of left calf with fat layer exposed; L97.325 Non-pressure chronic ulcer of left ankle with muscle involvement without evidence of necrosis; E11.59 Type 2 diabetes mellitus with other circulatory complications; G35 Multiple sclerosis | CPT/HCPCS: 82947 ==

== ENCOUNTER 2023-04-19 03:14 | Day surgery (SDC) | payer MEDICARE, OTHER | END 2023-04-19 23:16 | disposition home or self-care (01) | LOC: WOUND 03:14 | DX: E11.622 Type 2 diabetes mellitus with other skin ulcer (principal); L97.822 Non-pressure chronic ulcer of other part of left lower leg with fat layer exposed; I87.2 Venous insufficiency (chronic) (peripheral); I87.313 Chronic venous hypertension (idiopathic) with ulcer of bilateral lower extremity; L97.222 Non-pressure chronic ulcer of left calf with fat layer exposed; L97.325 Non-pressure chronic ulcer of left ankle with muscle involvement without evidence of necrosis; E11.59 Type 2 diabetes mellitus with other circulatory complications; G35 Multiple sclerosis | CPT/HCPCS: A9270 ==

== ENCOUNTER 2023-04-26 02:59 | Day surgery (SDC) | payer MEDICARE, OTHER | END 2023-04-26 22:53 | disposition home or self-care (01) | LOC: WOUND 02:59 | DX: E11.622 Type 2 diabetes mellitus with other skin ulcer (principal); L97.822 Non-pressure chronic ulcer of other part of left lower leg with fat layer exposed; S81.812D Laceration without foreign body, left lower leg, subsequent encounter; S89.92XD Unspecified injury of left lower leg, subsequent encounter; I87.313 Chronic venous hypertension (idiopathic) with ulcer of bilateral lower extremity; L97.325 Non-pressure chronic ulcer of left ankle with muscle involvement without evidence of necrosis; E11.59 Type 2 diabetes mellitus with other circulatory complications; G35 Multiple sclerosis; X58.XXXD Exposure to other specified factors, subsequent encounter ==

== ENCOUNTER 2023-05-05 10:04 | Day surgery (SDC) | payer MEDICARE, OTHER | END 2023-05-05 22:43 | disposition home or self-care (01) | LOC: WOUND 10:04 | DX: E11.622 Type 2 diabetes mellitus with other skin ulcer (principal); L97.822 Non-pressure chronic ulcer of other part of left lower leg with fat layer exposed; S81.812D Laceration without foreign body, left lower leg, subsequent encounter; I87.313 Chronic venous hypertension (idiopathic) with ulcer of bilateral lower extremity; L97.325 Non-pressure chronic ulcer of left ankle with muscle involvement without evidence of necrosis; I87.2 Venous insufficiency (chronic) (peripheral); E11.59 Type 2 diabetes mellitus with other circulatory complications; G35 Multiple sclerosis; X58.XXXD Exposure to other specified factors, subsequent encounter ==

== ENCOUNTER 2023-05-10 01:47 | Day surgery (SDC) | payer MEDICARE, OTHER ==
[2023-05-10] MEDS ORDERED: Lidocaine HCl 4% Cream 5 GM ONE (14:13)
== END 2023-05-10 23:23 | disposition home or self-care (01) ==
LOC: WOUND 01:47
DX: E11.622 Type 2 diabetes mellitus with other skin ulcer (principal); L97.822 Non-pressure chronic ulcer of other part of left lower leg with fat layer exposed; S81.812D Laceration without foreign body, left lower leg, subsequent encounter; I87.313 Chronic venous hypertension (idiopathic) with ulcer of bilateral lower extremity; L97.222 Non-pressure chronic ulcer of left calf with fat layer exposed; G35 Multiple sclerosis; L97.325 Non-pressure chronic ulcer of left ankle with muscle involvement without evidence of necrosis; I87.2 Venous insufficiency (chronic) (peripheral); E11.59 Type 2 diabetes mellitus with other circulatory complications; X58.XXXD Exposure to other specified factors, subsequent encounter; L97.529 Non-pressure chronic ulcer of other part of left foot with unspecified severity
CPT/HCPCS: 73630; A9270

== ENCOUNTER 2023-05-17 00:22 | Day surgery (SDC) | payer MEDICARE, OTHER | END 2023-05-17 22:37 | disposition home or self-care (01) | LOC: WOUND 00:22 | DX: E11.622 Type 2 diabetes mellitus with other skin ulcer (principal); L97.822 Non-pressure chronic ulcer of other part of left lower leg with fat layer exposed; I87.2 Venous insufficiency (chronic) (peripheral); I87.313 Chronic venous hypertension (idiopathic) with ulcer of bilateral lower extremity; L97.222 Non-pressure chronic ulcer of left calf with fat layer exposed; L97.325 Non-pressure chronic ulcer of left ankle with muscle involvement without evidence of necrosis; G35 Multiple sclerosis | CPT/HCPCS: G0463 ==

== ENCOUNTER 2023-05-22 08:00 | Day surgery (SDC) | payer MEDICARE, OTHER | END 2023-05-22 22:43 | disposition home or self-care (01) | LOC: WOUND 08:00 | DX: E11.622 Type 2 diabetes mellitus with other skin ulcer (principal); I87.313 Chronic venous hypertension (idiopathic) with ulcer of bilateral lower extremity; L97.222 Non-pressure chronic ulcer of left calf with fat layer exposed; L97.325 Non-pressure chronic ulcer of left ankle with muscle involvement without evidence of necrosis; I87.2 Venous insufficiency (chronic) (peripheral); E11.59 Type 2 diabetes mellitus with other circulatory complications; G35 Multiple sclerosis | CPT/HCPCS: G0463 ==

== ENCOUNTER 2023-05-24 05:34 | Day surgery (SDC) | payer MEDICARE, OTHER | END 2023-05-24 22:53 | disposition home or self-care (01) | LOC: WOUND 05:34 | DX: E11.622 Type 2 diabetes mellitus with other skin ulcer (principal); I87.313 Chronic venous hypertension (idiopathic) with ulcer of bilateral lower extremity; L97.222 Non-pressure chronic ulcer of left calf with fat layer exposed; L97.325 Non-pressure chronic ulcer of left ankle with muscle involvement without evidence of necrosis; I87.2 Venous insufficiency (chronic) (peripheral); E11.59 Type 2 diabetes mellitus with other circulatory complications; G35 Multiple sclerosis ==

== ENCOUNTER 2023-05-29 08:00 | Day surgery (SDC) | payer MEDICARE, OTHER | END 2023-05-30 22:35 | disposition home or self-care (01) | LOC: WOUND 08:00 | DX: I87.313 Chronic venous hypertension (idiopathic) with ulcer of bilateral lower extremity (principal); E11.622 Type 2 diabetes mellitus with other skin ulcer; L97.222 Non-pressure chronic ulcer of left calf with fat layer exposed; L97.325 Non-pressure chronic ulcer of left ankle with muscle involvement without evidence of necrosis; I87.2 Venous insufficiency (chronic) (peripheral); E11.59 Type 2 diabetes mellitus with other circulatory complications; G35 Multiple sclerosis ==

== ENCOUNTER 2023-05-31 02:52 | Day surgery (SDC) | payer MEDICARE, OTHER ==
[2023-05-31] MEDS ORDERED: Triamcinolone Acet 0.1% Cream 15 gm ONE (14:49)
== END 2023-05-31 22:49 | disposition home or self-care (01) ==
LOC: WOUND 02:52
DX: E11.622 Type 2 diabetes mellitus with other skin ulcer (principal); L97.822 Non-pressure chronic ulcer of other part of left lower leg with fat layer exposed; E11.621 Type 2 diabetes mellitus with foot ulcer; L97.428 Non-pressure chronic ulcer of left heel and midfoot with other specified severity; S81.812D Laceration without foreign body, left lower leg, subsequent encounter; I87.313 Chronic venous hypertension (idiopathic) with ulcer of bilateral lower extremity; L97.222 Non-pressure chronic ulcer of left calf with fat layer exposed; L97.325 Non-pressure chronic ulcer of left ankle with muscle involvement without evidence of necrosis; I87.2 Venous insufficiency (chronic) (peripheral); E11.59 Type 2 diabetes mellitus with other circulatory complications; G35 Multiple sclerosis; X58.XXXD Exposure to other specified factors, subsequent encounter
CPT/HCPCS: A9270

== ENCOUNTER 2023-07-12 02:28 | Day surgery (SDC) | payer MEDICARE, OTHER | END 2023-07-12 23:24 | disposition home or self-care (01) | LOC: WOUND 02:28 | DX: E11.622 Type 2 diabetes mellitus with other skin ulcer (principal); L97.825 Non-pressure chronic ulcer of other part of left lower leg with muscle involvement without evidence of necrosis; L97.812 Non-pressure chronic ulcer of other part of right lower leg with fat layer exposed; I87.313 Chronic venous hypertension (idiopathic) with ulcer of bilateral lower extremity; L97.222 Non-pressure chronic ulcer of left calf with fat layer exposed; L97.325 Non-pressure chronic ulcer of left ankle with muscle involvement without evidence of necrosis; I87.2 Venous insufficiency (chronic) (peripheral); E11.59 Type 2 diabetes mellitus with other circulatory complications; G35 Multiple sclerosis ==

== ENCOUNTER 2023-07-26 03:17 | Day surgery (SDC) | payer MEDICARE, OTHER | END 2023-07-26 22:50 | disposition home or self-care (01) | LOC: WOUND 03:17 | DX: E11.622 Type 2 diabetes mellitus with other skin ulcer (principal); L97.823 Non-pressure chronic ulcer of other part of left lower leg with necrosis of muscle; L97.813 Non-pressure chronic ulcer of other part of right lower leg with necrosis of muscle; I87.313 Chronic venous hypertension (idiopathic) with ulcer of bilateral lower extremity; L97.222 Non-pressure chronic ulcer of left calf with fat layer exposed; L97.325 Non-pressure chronic ulcer of left ankle with muscle involvement without evidence of necrosis; I87.2 Venous insufficiency (chronic) (peripheral); E11.59 Type 2 diabetes mellitus with other circulatory complications; G35 Multiple sclerosis ==

== ENCOUNTER 2023-08-02 03:12 | Day surgery (SDC) | payer MEDICARE, OTHER ==
[2023-08-02] MEDS ORDERED: Lidocaine HCl 4% Cream 5 GM ONE (14:52)
== END 2023-08-02 22:38 | disposition home or self-care (01) ==
LOC: WOUND 03:12
DX: E11.622 Type 2 diabetes mellitus with other skin ulcer (principal); I87.313 Chronic venous hypertension (idiopathic) with ulcer of bilateral lower extremity; L97.822 Non-pressure chronic ulcer of other part of left lower leg with fat layer exposed; L97.812 Non-pressure chronic ulcer of other part of right lower leg with fat layer exposed; L97.222 Non-pressure chronic ulcer of left calf with fat layer exposed; L97.325 Non-pressure chronic ulcer of left ankle with muscle involvement without evidence of necrosis; I87.2 Venous insufficiency (chronic) (peripheral); E11.59 Type 2 diabetes mellitus with other circulatory complications; G35 Multiple sclerosis
CPT/HCPCS: A9270

== ENCOUNTER 2023-08-09 04:34 | Day surgery (SDC) | payer MEDICARE, OTHER | END 2023-08-09 23:08 | disposition home or self-care (01) | LOC: WOUND 04:34 | DX: E11.622 Type 2 diabetes mellitus with other skin ulcer (principal); I87.313 Chronic venous hypertension (idiopathic) with ulcer of bilateral lower extremity; L97.325 Non-pressure chronic ulcer of left ankle with muscle involvement without evidence of necrosis; L97.222 Non-pressure chronic ulcer of left calf with fat layer exposed; L97.812 Non-pressure chronic ulcer of other part of right lower leg with fat layer exposed; E11.59 Type 2 diabetes mellitus with other circulatory complications; I87.2 Venous insufficiency (chronic) (peripheral); G35 Multiple sclerosis ==

== ENCOUNTER 2023-09-27 04:03 | Day surgery (SDC) | payer MEDICARE, OTHER | END 2023-09-27 22:39 | disposition home or self-care (01) | LOC: WOUND 04:03 | DX: E11.622 Type 2 diabetes mellitus with other skin ulcer (principal); L97.822 Non-pressure chronic ulcer of other part of left lower leg with fat layer exposed; I87.313 Chronic venous hypertension (idiopathic) with ulcer of bilateral lower extremity; I87.2 Venous insufficiency (chronic) (peripheral); E11.59 Type 2 diabetes mellitus with other circulatory complications; G35 Multiple sclerosis ==

== ENCOUNTER 2023-10-04 03:23 | Day surgery (SDC) | payer MEDICARE, OTHER | END 2023-10-04 23:00 | disposition home or self-care (01) | LOC: WOUND 03:23 | DX: E11.622 Type 2 diabetes mellitus with other skin ulcer (principal); I87.313 Chronic venous hypertension (idiopathic) with ulcer of bilateral lower extremity; L97.222 Non-pressure chronic ulcer of left calf with fat layer exposed; L97.325 Non-pressure chronic ulcer of left ankle with muscle involvement without evidence of necrosis; I87.2 Venous insufficiency (chronic) (peripheral); E11.59 Type 2 diabetes mellitus with other circulatory complications; G35 Multiple sclerosis ==

== ENCOUNTER 2023-10-11 02:29 | Day surgery (SDC) | payer MEDICARE, OTHER | END 2023-10-11 22:47 | disposition home or self-care (01) | LOC: WOUND 02:29 | DX: E11.622 Type 2 diabetes mellitus with other skin ulcer (principal); L97.822 Non-pressure chronic ulcer of other part of left lower leg with fat layer exposed; I87.313 Chronic venous hypertension (idiopathic) with ulcer of bilateral lower extremity; L97.325 Non-pressure chronic ulcer of left ankle with muscle involvement without evidence of necrosis; G35 Multiple sclerosis; E11.59 Type 2 diabetes mellitus with other circulatory complications; I87.2 Venous insufficiency (chronic) (peripheral) ==

== ENCOUNTER 2023-10-20 05:39 | Day surgery (SDC) | payer MEDICARE, OTHER | END 2023-10-20 22:34 | disposition home or self-care (01) | LOC: WOUND 05:39 | DX: E11.622 Type 2 diabetes mellitus with other skin ulcer (principal); L97.325 Non-pressure chronic ulcer of left ankle with muscle involvement without evidence of necrosis; L97.222 Non-pressure chronic ulcer of left calf with fat layer exposed; I87.313 Chronic venous hypertension (idiopathic) with ulcer of bilateral lower extremity; I87.2 Venous insufficiency (chronic) (peripheral); E11.59 Type 2 diabetes mellitus with other circulatory complications; G35 Multiple sclerosis ==

== ENCOUNTER 2023-11-01 04:00 | Day surgery (SDC) | payer MEDICARE, OTHER | END 2023-11-01 22:52 | disposition home or self-care (01) | LOC: WOUND 04:00 | DX: E11.622 Type 2 diabetes mellitus with other skin ulcer (principal); L97.822 Non-pressure chronic ulcer of other part of left lower leg with fat layer exposed; L97.812 Non-pressure chronic ulcer of other part of right lower leg with fat layer exposed ==

== ENCOUNTER 2023-11-22 05:43 | Day surgery (SDC) | payer MEDICARE, OTHER ==
[2023-11-22] MEDS ORDERED: Lidocaine HCl 4% Cream 5 GM ONE (14:53)
== END 2023-11-22 23:06 | disposition home or self-care (01) ==
LOC: WOUND 05:43
DX: E11.622 Type 2 diabetes mellitus with other skin ulcer (principal); I87.313 Chronic venous hypertension (idiopathic) with ulcer of bilateral lower extremity; L97.325 Non-pressure chronic ulcer of left ankle with muscle involvement without evidence of necrosis; L97.222 Non-pressure chronic ulcer of left calf with fat layer exposed; L97.812 Non-pressure chronic ulcer of other part of right lower leg with fat layer exposed; I87.2 Venous insufficiency (chronic) (peripheral); E11.59 Type 2 diabetes mellitus with other circulatory complications; G35 Multiple sclerosis
CPT/HCPCS: A9270; Q4133

== ENCOUNTER 2023-11-29 00:32 | Day surgery (SDC) | payer MEDICARE, OTHER | END 2023-11-29 23:14 | disposition home or self-care (01) | LOC: WOUND 00:32 | DX: E11.622 Type 2 diabetes mellitus with other skin ulcer (principal); L97.822 Non-pressure chronic ulcer of other part of left lower leg with fat layer exposed; L97.812 Non-pressure chronic ulcer of other part of right lower leg with fat layer exposed; I87.313 Chronic venous hypertension (idiopathic) with ulcer of bilateral lower extremity; E11.59 Type 2 diabetes mellitus with other circulatory complications; G35 Multiple sclerosis ==

== ENCOUNTER 2023-12-06 04:25 | Day surgery (SDC) | payer MEDICARE, OTHER | END 2023-12-06 22:41 | disposition home or self-care (01) | LOC: WOUND 04:25 | DX: E11.622 Type 2 diabetes mellitus with other skin ulcer (principal); I87.313 Chronic venous hypertension (idiopathic) with ulcer of bilateral lower extremity; L97.222 Non-pressure chronic ulcer of left calf with fat layer exposed; L97.325 Non-pressure chronic ulcer of left ankle with muscle involvement without evidence of necrosis; L97.812 Non-pressure chronic ulcer of other part of right lower leg with fat layer exposed; I87.2 Venous insufficiency (chronic) (peripheral); E11.59 Type 2 diabetes mellitus with other circulatory complications; G35 Multiple sclerosis | CPT/HCPCS: Q4133 ==

== ENCOUNTER 2023-12-20 01:40 | Day surgery (SDC) | payer MEDICARE, OTHER | END 2023-12-20 22:40 | disposition home or self-care (01) | LOC: WOUND 01:40 | DX: E11.622 Type 2 diabetes mellitus with other skin ulcer (principal); L97.822 Non-pressure chronic ulcer of other part of left lower leg with fat layer exposed; I87.313 Chronic venous hypertension (idiopathic) with ulcer of bilateral lower extremity; L97.812 Non-pressure chronic ulcer of other part of right lower leg with fat layer exposed; L97.222 Non-pressure chronic ulcer of left calf with fat layer exposed; L97.325 Non-pressure chronic ulcer of left ankle with muscle involvement without evidence of necrosis; I87.2 Venous insufficiency (chronic) (peripheral); G35 Multiple sclerosis; E11.59 Type 2 diabetes mellitus with other circulatory complications ==

== ENCOUNTER 2023-12-28 03:01 | Day surgery (SDC) | payer MEDICARE, OTHER ==
[2023-12-28] MEDS ORDERED: Bacitracin Zinc Oint 1GRAM UD Packet ONE (16:04)
== END 2023-12-28 23:00 | disposition home or self-care (01) ==
LOC: WOUND
DX: E11.622 Type 2 diabetes mellitus with other skin ulcer (principal); I87.313 Chronic venous hypertension (idiopathic) with ulcer of bilateral lower extremity; L97.812 Non-pressure chronic ulcer of other part of right lower leg with fat layer exposed; L97.822 Non-pressure chronic ulcer of other part of left lower leg with fat layer exposed; L97.222 Non-pressure chronic ulcer of left calf with fat layer exposed; L97.325 Non-pressure chronic ulcer of left ankle with muscle involvement without evidence of necrosis; I87.2 Venous insufficiency (chronic) (peripheral); G35 Multiple sclerosis; E11.59 Type 2 diabetes mellitus with other circulatory complications
CPT/HCPCS: Q4133

== ENCOUNTER 2024-01-03 02:27 | Day surgery (SDC) | payer MEDICARE, OTHER | END 2024-01-03 23:10 | disposition home or self-care (01) | LOC: WOUND | DX: E11.622 Type 2 diabetes mellitus with other skin ulcer (principal); L97.822 Non-pressure chronic ulcer of other part of left lower leg with fat layer exposed; L97.812 Non-pressure chronic ulcer of other part of right lower leg with fat layer exposed; I87.313 Chronic venous hypertension (idiopathic) with ulcer of bilateral lower extremity; L97.222 Non-pressure chronic ulcer of left calf with fat layer exposed; L97.325 Non-pressure chronic ulcer of left ankle with muscle involvement without evidence of necrosis; I87.2 Venous insufficiency (chronic) (peripheral); E11.59 Type 2 diabetes mellitus with other circulatory complications; G35 Multiple sclerosis | CPT/HCPCS: 93970; Q4133 ==

== ENCOUNTER 2024-01-10 04:36 | Day surgery (SDC) | payer MEDICARE, OTHER | END 2024-01-10 22:48 | disposition home or self-care (01) | LOC: WOUND 04:36 | DX: E11.622 Type 2 diabetes mellitus with other skin ulcer (principal); L97.825 Non-pressure chronic ulcer of other part of left lower leg with muscle involvement without evidence of necrosis; I87.2 Venous insufficiency (chronic) (peripheral); G35 Multiple sclerosis; E11.51 Type 2 diabetes mellitus with diabetic peripheral angiopathy without gangrene; J44.9 Chronic obstructive pulmonary disease, unspecified; I25.10 Atherosclerotic heart disease of native coronary artery without angina pectoris | CPT/HCPCS: Q4133 ==

== ENCOUNTER 2024-01-17 02:31 | Day surgery (SDC) | payer MEDICARE, OTHER | END 2024-01-17 23:00 | disposition home or self-care (01) | LOC: WOUND 02:31 | DX: E11.622 Type 2 diabetes mellitus with other skin ulcer (principal); L97.822 Non-pressure chronic ulcer of other part of left lower leg with fat layer exposed; E11.51 Type 2 diabetes mellitus with diabetic peripheral angiopathy without gangrene; G35 Multiple sclerosis; I87.2 Venous insufficiency (chronic) (peripheral); J44.9 Chronic obstructive pulmonary disease, unspecified; I25.10 Atherosclerotic heart disease of native coronary artery without angina pectoris; I25.2 Old myocardial infarction ==

== ENCOUNTER 2024-01-24 01:58 | Day surgery (SDC) | payer MEDICARE, OTHER | END 2024-01-24 23:01 | disposition home or self-care (01) | LOC: WOUND 01:58 | DX: E11.622 Type 2 diabetes mellitus with other skin ulcer (principal); L97.822 Non-pressure chronic ulcer of other part of left lower leg with fat layer exposed; I87.2 Venous insufficiency (chronic) (peripheral); G35 Multiple sclerosis; J44.9 Chronic obstructive pulmonary disease, unspecified; E11.51 Type 2 diabetes mellitus with diabetic peripheral angiopathy without gangrene; I25.2 Old myocardial infarction | CPT/HCPCS: 87071; 87075; 87147; 87205 ==

== ENCOUNTER 2024-01-31 03:50 | Day surgery (SDC) | payer MEDICARE, OTHER | END 2024-01-31 23:31 | disposition home or self-care (01) | LOC: WOUND 03:50 | DX: E11.622 Type 2 diabetes mellitus with other skin ulcer (principal); L97.523 Non-pressure chronic ulcer of other part of left foot with necrosis of muscle; L97.325 Non-pressure chronic ulcer of left ankle with muscle involvement without evidence of necrosis; L97.222 Non-pressure chronic ulcer of left calf with fat layer exposed; L97.812 Non-pressure chronic ulcer of other part of right lower leg with fat layer exposed; I87.313 Chronic venous hypertension (idiopathic) with ulcer of bilateral lower extremity; I87.2 Venous insufficiency (chronic) (peripheral); E11.59 Type 2 diabetes mellitus with other circulatory complications; G35 Multiple sclerosis ==

== ENCOUNTER 2024-02-07 03:34 | Day surgery (SDC) | payer MEDICARE, OTHER | END 2024-02-07 23:00 | disposition home or self-care (01) | LOC: WOUND 03:34 | DX: E11.622 Type 2 diabetes mellitus with other skin ulcer (principal); L97.822 Non-pressure chronic ulcer of other part of left lower leg with fat layer exposed; I87.2 Venous insufficiency (chronic) (peripheral); G35 Multiple sclerosis; E11.40 Type 2 diabetes mellitus with diabetic neuropathy, unspecified; J44.9 Chronic obstructive pulmonary disease, unspecified; I25.10 Atherosclerotic heart disease of native coronary artery without angina pectoris; I25.2 Old myocardial infarction ==

== ENCOUNTER 2024-02-14 05:05 | Day surgery (SDC) | payer MEDICARE, OTHER | END 2024-02-14 23:00 | disposition home or self-care (01) | LOC: WOUND 05:05 | DX: E11.622 Type 2 diabetes mellitus with other skin ulcer (principal); L97.822 Non-pressure chronic ulcer of other part of left lower leg with fat layer exposed; I87.312 Chronic venous hypertension (idiopathic) with ulcer of left lower extremity; G35 Multiple sclerosis; J44.9 Chronic obstructive pulmonary disease, unspecified; E11.51 Type 2 diabetes mellitus with diabetic peripheral angiopathy without gangrene; I25.10 Atherosclerotic heart disease of native coronary artery without angina pectoris; I25.2 Old myocardial infarction ==

== ENCOUNTER 2024-02-28 01:17 | Day surgery (SDC) | payer MEDICARE, OTHER | END 2024-02-28 22:47 | disposition home or self-care (01) | LOC: WOUND 01:17 | DX: E11.622 Type 2 diabetes mellitus with other skin ulcer (principal); L97.822 Non-pressure chronic ulcer of other part of left lower leg with fat layer exposed; E11.621 Type 2 diabetes mellitus with foot ulcer; L97.422 Non-pressure chronic ulcer of left heel and midfoot with fat layer exposed; I87.313 Chronic venous hypertension (idiopathic) with ulcer of bilateral lower extremity; I87.2 Venous insufficiency (chronic) (peripheral); G35 Multiple sclerosis ==

== ENCOUNTER 2024-03-06 03:34 | Day surgery (SDC) | payer MEDICARE, OTHER | END 2024-03-06 23:00 | disposition home or self-care (01) | LOC: WOUND 03:34 | DX: E11.621 Type 2 diabetes mellitus with foot ulcer (principal); L97.422 Non-pressure chronic ulcer of left heel and midfoot with fat layer exposed; E11.622 Type 2 diabetes mellitus with other skin ulcer; L97.822 Non-pressure chronic ulcer of other part of left lower leg with fat layer exposed; I87.2 Venous insufficiency (chronic) (peripheral); G35 Multiple sclerosis ==

== ENCOUNTER 2024-03-13 03:47 | Day surgery (SDC) | payer MEDICARE, OTHER | END 2024-03-13 23:53 | disposition home or self-care (01) | LOC: WOUND 03:47 | DX: E11.622 Type 2 diabetes mellitus with other skin ulcer (principal); L97.825 Non-pressure chronic ulcer of other part of left lower leg with muscle involvement without evidence of necrosis; E11.621 Type 2 diabetes mellitus with foot ulcer; L97.422 Non-pressure chronic ulcer of left heel and midfoot with fat layer exposed; I87.313 Chronic venous hypertension (idiopathic) with ulcer of bilateral lower extremity; I87.2 Venous insufficiency (chronic) (peripheral); E11.59 Type 2 diabetes mellitus with other circulatory complications; G35 Multiple sclerosis | CPT/HCPCS: A6196 ==

== ENCOUNTER 2024-03-20 05:47 | Day surgery (SDC) | payer MEDICARE, OTHER | END 2024-03-20 23:00 | disposition home or self-care (01) | LOC: WOUND 05:47 | DX: E11.621 Type 2 diabetes mellitus with foot ulcer (principal); L97.422 Non-pressure chronic ulcer of left heel and midfoot with fat layer exposed; E11.622 Type 2 diabetes mellitus with other skin ulcer; L97.822 Non-pressure chronic ulcer of other part of left lower leg with fat layer exposed; I87.2 Venous insufficiency (chronic) (peripheral); G35 Multiple sclerosis | CPT/HCPCS: A6196 ==

== ENCOUNTER 2024-03-25 02:51 | Day surgery (SDC) | payer MEDICARE, OTHER | END 2024-03-25 23:21 | disposition home or self-care (01) | LOC: WOUND 02:51 | DX: E11.622 Type 2 diabetes mellitus with other skin ulcer (principal); L97.223 Non-pressure chronic ulcer of left calf with necrosis of muscle; E11.621 Type 2 diabetes mellitus with foot ulcer; L97.422 Non-pressure chronic ulcer of left heel and midfoot with fat layer exposed; I87.313 Chronic venous hypertension (idiopathic) with ulcer of bilateral lower extremity; L97.812 Non-pressure chronic ulcer of other part of right lower leg with fat layer exposed; L97.325 Non-pressure chronic ulcer of left ankle with muscle involvement without evidence of necrosis; I87.2 Venous insufficiency (chronic) (peripheral); E11.59 Type 2 diabetes mellitus with other circulatory complications; G35 Multiple sclerosis ==

== ENCOUNTER 2024-04-02 01:09 | Day surgery (SDC) | payer MEDICARE, OTHER | END 2024-04-02 23:00 | disposition home or self-care (01) | LOC: WOUND 01:09 | DX: E11.622 Type 2 diabetes mellitus with other skin ulcer (principal); L97.823 Non-pressure chronic ulcer of other part of left lower leg with necrosis of muscle; E11.621 Type 2 diabetes mellitus with foot ulcer; L97.422 Non-pressure chronic ulcer of left heel and midfoot with fat layer exposed; I87.313 Chronic venous hypertension (idiopathic) with ulcer of bilateral lower extremity; L97.222 Non-pressure chronic ulcer of left calf with fat layer exposed; I87.2 Venous insufficiency (chronic) (peripheral); E11.59 Type 2 diabetes mellitus with other circulatory complications; G35 Multiple sclerosis ==

== ENCOUNTER 2024-04-10 01:23 | Day surgery (SDC) | payer MEDICARE, OTHER | END 2024-04-10 23:00 | disposition home or self-care (01) | LOC: WOUND 01:23 | DX: E11.622 Type 2 diabetes mellitus with other skin ulcer (principal); L97.822 Non-pressure chronic ulcer of other part of left lower leg with fat layer exposed; E11.621 Type 2 diabetes mellitus with foot ulcer; L97.422 Non-pressure chronic ulcer of left heel and midfoot with fat layer exposed; I87.313 Chronic venous hypertension (idiopathic) with ulcer of bilateral lower extremity; E11.59 Type 2 diabetes mellitus with other circulatory complications; G35 Multiple sclerosis; I87.2 Venous insufficiency (chronic) (peripheral) ==

== ENCOUNTER 2024-04-17 06:30 | Day surgery (SDC) | payer MEDICARE, OTHER ==
[2024-04-17] MEDS ORDERED: Lidocaine HCl 4% Cream 5 GM ONE (14:51)
== END 2024-04-17 22:50 | disposition home or self-care (01) ==
LOC: WOUND 06:30
DX: E11.622 Type 2 diabetes mellitus with other skin ulcer (principal); L97.825 Non-pressure chronic ulcer of other part of left lower leg with muscle involvement without evidence of necrosis; E11.621 Type 2 diabetes mellitus with foot ulcer; L97.422 Non-pressure chronic ulcer of left heel and midfoot with fat layer exposed; G35 Multiple sclerosis; I87.2 Venous insufficiency (chronic) (peripheral)
CPT/HCPCS: A9270

== ENCOUNTER 2024-04-24 05:34 | Day surgery (SDC) | payer MEDICARE, OTHER | END 2024-04-24 23:00 | disposition home or self-care (01) | LOC: WOUND 05:34 | DX: E11.622 Type 2 diabetes mellitus with other skin ulcer (principal); L97.825 Non-pressure chronic ulcer of other part of left lower leg with muscle involvement without evidence of necrosis; E11.621 Type 2 diabetes mellitus with foot ulcer; L97.422 Non-pressure chronic ulcer of left heel and midfoot with fat layer exposed; I87.2 Venous insufficiency (chronic) (peripheral); G35 Multiple sclerosis ==

== ENCOUNTER 2024-05-01 03:22 | Day surgery (SDC) | payer MEDICARE, OTHER | END 2024-05-01 22:00 | disposition home or self-care (01) | LOC: WOUND 03:22 | DX: E11.622 Type 2 diabetes mellitus with other skin ulcer (principal); L97.823 Non-pressure chronic ulcer of other part of left lower leg with necrosis of muscle; E11.621 Type 2 diabetes mellitus with foot ulcer; I87.313 Chronic venous hypertension (idiopathic) with ulcer of bilateral lower extremity; I87.2 Venous insufficiency (chronic) (peripheral); E11.59 Type 2 diabetes mellitus with other circulatory complications; G35 Multiple sclerosis ==

== ENCOUNTER 2024-05-15 02:18 | Day surgery (SDC) | payer MEDICARE, OTHER ==
[2024-05-15] MEDS ORDERED: Lidocaine HCl 4% Cream 5 GM ONE (15:33)
== END 2024-05-15 23:00 | disposition home or self-care (01) ==
LOC: WOUND 02:18
DX: E11.622 Type 2 diabetes mellitus with other skin ulcer (principal); L97.825 Non-pressure chronic ulcer of other part of left lower leg with muscle involvement without evidence of necrosis; I87.2 Venous insufficiency (chronic) (peripheral); G35 Multiple sclerosis
CPT/HCPCS: 82947; A9270

== ENCOUNTER → 2024-05-29 | Day surgery (SDC) | payer MEDICARE, OTHER | LOC: WOUND 01:37 | DX: E11.622 Type 2 diabetes mellitus with other skin ulcer (principal); L97.823 Non-pressure chronic ulcer of other part of left lower leg with necrosis of muscle; E11.621 Type 2 diabetes mellitus with foot ulcer; I87.313 Chronic venous hypertension (idiopathic) with ulcer of bilateral lower extremity; E11.59 Type 2 diabetes mellitus with other circulatory complications; G35 Multiple sclerosis ==

== ENCOUNTER 2024-06-05 01:02 | Day surgery (SDC) | payer MEDICARE, OTHER | END 2024-06-05 23:00 | disposition home or self-care (01) | LOC: WOUND 01:02 | DX: E11.622 Type 2 diabetes mellitus with other skin ulcer (principal); L97.823 Non-pressure chronic ulcer of other part of left lower leg with necrosis of muscle; I87.313 Chronic venous hypertension (idiopathic) with ulcer of bilateral lower extremity; E11.621 Type 2 diabetes mellitus with foot ulcer; I87.2 Venous insufficiency (chronic) (peripheral); G35 Multiple sclerosis; E11.59 Type 2 diabetes mellitus with other circulatory complications ==

== ENCOUNTER 2024-06-19 01:51 | Day surgery (SDC) | payer MEDICARE, OTHER ==
[2024-06-19] MEDS ORDERED: Lidocaine HCl 4% Cream 5 GM ONE (15:15)
== END 2024-06-19 23:00 | disposition home or self-care (01) ==
LOC: WOUND 01:51
DX: E11.622 Type 2 diabetes mellitus with other skin ulcer (principal); L97.823 Non-pressure chronic ulcer of other part of left lower leg with necrosis of muscle; I87.313 Chronic venous hypertension (idiopathic) with ulcer of bilateral lower extremity; E11.621 Type 2 diabetes mellitus with foot ulcer; I87.2 Venous insufficiency (chronic) (peripheral); E11.69 Type 2 diabetes mellitus with other specified complication; G35 Multiple sclerosis
CPT/HCPCS: A9270

== ENCOUNTER 2024-06-26 04:39 | Day surgery (SDC) | payer MEDICARE, OTHER | END 2024-06-26 23:00 | disposition home or self-care (01) | LOC: WOUND 04:39 | DX: E11.622 Type 2 diabetes mellitus with other skin ulcer (principal); L97.823 Non-pressure chronic ulcer of other part of left lower leg with necrosis of muscle; E11.621 Type 2 diabetes mellitus with foot ulcer; I87.313 Chronic venous hypertension (idiopathic) with ulcer of bilateral lower extremity; I87.2 Venous insufficiency (chronic) (peripheral); E11.59 Type 2 diabetes mellitus with other circulatory complications; G35 Multiple sclerosis ==

== ENCOUNTER 2024-07-05 00:39 | Day surgery (SDC) | payer MEDICARE, OTHER | END 2024-07-05 23:00 | disposition home or self-care (01) | LOC: WOUND 00:39 | DX: E11.622 Type 2 diabetes mellitus with other skin ulcer (principal); E11.22 Type 2 diabetes mellitus with diabetic chronic kidney disease; E11.42 Type 2 diabetes mellitus with diabetic polyneuropathy; L97.825 Non-pressure chronic ulcer of other part of left lower leg with muscle involvement without evidence of necrosis; N18.32 Chronic kidney disease, stage 3b; I87.2 Venous insufficiency (chronic) (peripheral); G35 Multiple sclerosis; D64.9 Anemia, unspecified | CPT/HCPCS: 36415; 80069; 81001; 82043; 82570; 82728; 83036; 83540; 83550; 83970; 85025; 87086 ==

== ENCOUNTER 2024-07-10 03:09 | Day surgery (SDC) | payer MEDICARE, OTHER ==
[2024-07-10] MEDS ORDERED: Lidocaine HCl 4% Cream 5 GM ONE (15:16)
== END 2024-07-10 23:00 | disposition home or self-care (01) ==
LOC: WOUND 03:09
DX: E11.622 Type 2 diabetes mellitus with other skin ulcer (principal); L97.823 Non-pressure chronic ulcer of other part of left lower leg with necrosis of muscle; E11.621 Type 2 diabetes mellitus with foot ulcer; L97.422 Non-pressure chronic ulcer of left heel and midfoot with fat layer exposed; I87.313 Chronic venous hypertension (idiopathic) with ulcer of bilateral lower extremity; I87.2 Venous insufficiency (chronic) (peripheral); E11.69 Type 2 diabetes mellitus with other specified complication; G35 Multiple sclerosis
CPT/HCPCS: A9270

== ENCOUNTER 2024-07-17 03:19 | Day surgery (SDC) | payer MEDICARE, OTHER | END 2024-07-17 23:00 | disposition home or self-care (01) | LOC: WOUND 03:19 | DX: E11.622 Type 2 diabetes mellitus with other skin ulcer (principal); L97.823 Non-pressure chronic ulcer of other part of left lower leg with necrosis of muscle; E11.621 Type 2 diabetes mellitus with foot ulcer; L97.422 Non-pressure chronic ulcer of left heel and midfoot with fat layer exposed; I87.2 Venous insufficiency (chronic) (peripheral); E11.59 Type 2 diabetes mellitus with other circulatory complications; G35 Multiple sclerosis ==

== ENCOUNTER 2024-07-24 01:56 | Day surgery (SDC) | payer MEDICARE, OTHER | END 2024-07-24 23:00 | LOC: WOUND 01:56 | DX: E11.622 Type 2 diabetes mellitus with other skin ulcer (principal); L97.825 Non-pressure chronic ulcer of other part of left lower leg with muscle involvement without evidence of necrosis; E11.621 Type 2 diabetes mellitus with foot ulcer; L97.422 Non-pressure chronic ulcer of left heel and midfoot with fat layer exposed; I87.313 Chronic venous hypertension (idiopathic) with ulcer of bilateral lower extremity; I87.2 Venous insufficiency (chronic) (peripheral); E11.59 Type 2 diabetes mellitus with other circulatory complications; G35 Multiple sclerosis ==

== ENCOUNTER 2024-07-31 05:37 | Day surgery (SDC) | payer MEDICARE, OTHER ==
[2024-08-01] MEDS ORDERED: ATEN25 (06:47)
[2024-08-01] MEDS ORDERED: FUROSEMIDE40 MG PO (06:47)
[2024-08-01] MEDS ORDERED: FARXIGA10 MG PO (06:48)
[2024-08-01] MEDS ORDERED: LOSA25 (06:48)
[2024-08-01] MEDS ORDERED: EUTHYROX137 MC1 PO (06:48)
[2024-08-01] MEDS ORDERED: HYDROCODONE-AC1 EA19 PO (06:48)
[2024-08-01] MEDS ORDERED: HUMULIN R500 UNIT/2 SQ (06:48)
[2024-08-01] MEDS ORDERED: ACET500 PO (07:53)
== END 2024-07-31 23:00 | disposition home or self-care (01) ==
LOC: WOUND 05:37
DX: E11.622 Type 2 diabetes mellitus with other skin ulcer (principal); L97.825 Non-pressure chronic ulcer of other part of left lower leg with muscle involvement without evidence of necrosis; E11.621 Type 2 diabetes mellitus with foot ulcer; L97.422 Non-pressure chronic ulcer of left heel and midfoot with fat layer exposed; L97.812 Non-pressure chronic ulcer of other part of right lower leg with fat layer exposed; G35 Multiple sclerosis; I87.313 Chronic venous hypertension (idiopathic) with ulcer of bilateral lower extremity; E11.59 Type 2 diabetes mellitus with other circulatory complications; I87.2 Venous insufficiency (chronic) (peripheral)

== ENCOUNTER 2024-08-01 06:31 | Emergency (ER) | payer OTHER, MEDICARE ==
[~2024-08-01] VITALS: Ht 175.3 cm; Wt 174.2 kg
[2024-08-01 06:38] VITALS: BP 174/107
[2024-08-01] MEDS ORDERED: ATEN25 (06:47)
[2024-08-01] MEDS ORDERED: FUROSEMIDE40 MG PO (06:47)
[2024-08-01] MEDS ORDERED: HUMULIN R500 UNIT/2 SQ (06:48)
[2024-08-01] MEDS ORDERED: FARXIGA10 MG PO (06:48)
[2024-08-01] MEDS ORDERED: LOSA25 (06:48)
[2024-08-01] MEDS ORDERED: EUTHYROX137 MC1 PO (06:48)
[2024-08-01] MEDS ORDERED: HYDROCODONE-AC1 EA19 PO (06:48)
[2024-08-01] MEDS ORDERED: Acetaminophen 500 MG Tab PO ONE (06:55)
[2024-08-01] MEDS ORDERED: ACET500 PO (07:53)
== END 2024-08-01 08:42 | disposition home or self-care (01) ==
LOC: ER 06:31
DX: M54.2 Cervicalgia (principal); I12.9 Hypertensive chronic kidney disease with stage 1 through stage 4 chronic kidney disease, or unspecified chronic kidney disease; E11.22 Type 2 diabetes mellitus with diabetic chronic kidney disease; N18.9 Chronic kidney disease, unspecified; Z79.899 Other long term (current) drug therapy; Z79.4 Long term (current) use of insulin; V43.52XA Car driver injured in collision with other type car in traffic accident, initial encounter
CPT/HCPCS: 72125; 99283-25; A9270; L0160

== ENCOUNTER 2024-08-07 02:45 | Day surgery (SDC) | payer MEDICARE, OTHER ==
[~2024-08-07 02:45] MED LIST: ACET500 PO; ATEN25; EUTHYROX137 MC1 PO; FARXIGA10 MG PO; FUROSEMIDE40 MG PO; HUMULIN R500 UNIT/2 SQ; HYDROCODONE-AC1 EA19 PO; LOSA25
== END 2024-08-07 23:00 | disposition home or self-care (01) ==
LOC: WOUND 02:45
DX: E11.622 Type 2 diabetes mellitus with other skin ulcer (principal); I87.313 Chronic venous hypertension (idiopathic) with ulcer of bilateral lower extremity; L97.812 Non-pressure chronic ulcer of other part of right lower leg with fat layer exposed; L97.825 Non-pressure chronic ulcer of other part of left lower leg with muscle involvement without evidence of necrosis; E11.621 Type 2 diabetes mellitus with foot ulcer; L97.422 Non-pressure chronic ulcer of left heel and midfoot with fat layer exposed; G35 Multiple sclerosis; I87.2 Venous insufficiency (chronic) (peripheral); E11.59 Type 2 diabetes mellitus with other circulatory complications

== ENCOUNTER 2024-08-14 03:22 | Day surgery (SDC) | payer MEDICARE, OTHER | END 2024-08-14 23:00 | disposition home or self-care (01) | LOC: WOUND 03:22 | DX: E11.622 Type 2 diabetes mellitus with other skin ulcer (principal); I87.313 Chronic venous hypertension (idiopathic) with ulcer of bilateral lower extremity; L97.825 Non-pressure chronic ulcer of other part of left lower leg with muscle involvement without evidence of necrosis; L97.812 Non-pressure chronic ulcer of other part of right lower leg with fat layer exposed; E11.621 Type 2 diabetes mellitus with foot ulcer; L97.522 Non-pressure chronic ulcer of other part of left foot with fat layer exposed; G35 Multiple sclerosis; I87.2 Venous insufficiency (chronic) (peripheral) ==

== ENCOUNTER 2024-08-21 06:07 | Day surgery (SDC) | payer MEDICARE, OTHER | END 2024-08-21 23:00 | LOC: WOUND 06:07 | DX: E11.622 Type 2 diabetes mellitus with other skin ulcer (principal); L97.825 Non-pressure chronic ulcer of other part of left lower leg with muscle involvement without evidence of necrosis; E11.621 Type 2 diabetes mellitus with foot ulcer; L97.422 Non-pressure chronic ulcer of left heel and midfoot with fat layer exposed; I87.313 Chronic venous hypertension (idiopathic) with ulcer of bilateral lower extremity; G35 Multiple sclerosis; I87.2 Venous insufficiency (chronic) (peripheral); E11.59 Type 2 diabetes mellitus with other circulatory complications ==

== ENCOUNTER 2024-09-11 03:07 | Day surgery (SDC) | payer MEDICARE, OTHER | END 2024-09-11 23:00 | disposition home or self-care (01) | LOC: WOUND 03:07 | DX: E11.622 Type 2 diabetes mellitus with other skin ulcer (principal); I87.312 Chronic venous hypertension (idiopathic) with ulcer of left lower extremity; L97.825 Non-pressure chronic ulcer of other part of left lower leg with muscle involvement without evidence of necrosis; G35 Multiple sclerosis; I87.2 Venous insufficiency (chronic) (peripheral) ==

== ENCOUNTER 2024-10-01 02:56 | Day surgery (SDC) | payer MEDICARE, OTHER ==
[2024-10-01] MEDS ORDERED: Lidocaine HCl 4% Cream 5 GM ONE (14:43)
== END 2024-10-01 23:00 | disposition home or self-care (01) ==
LOC: WOUND 02:56
DX: I87.312 Chronic venous hypertension (idiopathic) with ulcer of left lower extremity (principal); E11.622 Type 2 diabetes mellitus with other skin ulcer; L97.825 Non-pressure chronic ulcer of other part of left lower leg with muscle involvement without evidence of necrosis; G35 Multiple sclerosis; I87.2 Venous insufficiency (chronic) (peripheral)
CPT/HCPCS: A9270

== ENCOUNTER 2024-10-09 02:31 | Day surgery (SDC) | payer MEDICARE, OTHER | END 2024-10-09 23:00 | disposition home or self-care (01) | LOC: WOUND 02:31 | DX: E11.622 Type 2 diabetes mellitus with other skin ulcer (principal); I87.313 Chronic venous hypertension (idiopathic) with ulcer of bilateral lower extremity; L97.825 Non-pressure chronic ulcer of other part of left lower leg with muscle involvement without evidence of necrosis; L97.212 Non-pressure chronic ulcer of right calf with fat layer exposed; G35 Multiple sclerosis; I87.2 Venous insufficiency (chronic) (peripheral) ==

== ENCOUNTER 2024-10-16 03:55 | Day surgery (SDC) | payer MEDICARE, OTHER | END 2024-10-16 23:00 | disposition home or self-care (01) | LOC: WOUND 03:55 | DX: E11.622 Type 2 diabetes mellitus with other skin ulcer (principal); I87.313 Chronic venous hypertension (idiopathic) with ulcer of bilateral lower extremity; L97.825 Non-pressure chronic ulcer of other part of left lower leg with muscle involvement without evidence of necrosis; L97.212 Non-pressure chronic ulcer of right calf with fat layer exposed; G35 Multiple sclerosis; I87.2 Venous insufficiency (chronic) (peripheral) ==

== ENCOUNTER 2024-10-23 01:47 | Day surgery (SDC) | payer MEDICARE, OTHER | END 2024-10-23 23:00 | disposition home or self-care (01) | LOC: WOUND 01:47 | DX: E11.622 Type 2 diabetes mellitus with other skin ulcer (principal); I87.312 Chronic venous hypertension (idiopathic) with ulcer of left lower extremity; L97.825 Non-pressure chronic ulcer of other part of left lower leg with muscle involvement without evidence of necrosis; G35 Multiple sclerosis; I87.2 Venous insufficiency (chronic) (peripheral) ==

== ENCOUNTER 2024-10-30 04:03 | Day surgery (SDC) | payer MEDICARE, OTHER | END 2024-10-30 23:00 | disposition home or self-care (01) | LOC: WOUND 04:03 | DX: E11.622 Type 2 diabetes mellitus with other skin ulcer (principal); I87.313 Chronic venous hypertension (idiopathic) with ulcer of bilateral lower extremity; L97.825 Non-pressure chronic ulcer of other part of left lower leg with muscle involvement without evidence of necrosis; L97.812 Non-pressure chronic ulcer of other part of right lower leg with fat layer exposed; G35 Multiple sclerosis; I87.2 Venous insufficiency (chronic) (peripheral) ==

== ENCOUNTER → 2024-11-06 | Day surgery (SDC) | payer MEDICARE, OTHER | END | disposition home or self-care (01) | LOC: WOUND | DX: E11.622 Type 2 diabetes mellitus with other skin ulcer (principal); L97.825 Non-pressure chronic ulcer of other part of left lower leg with muscle involvement without evidence of necrosis; E11.59 Type 2 diabetes mellitus with other circulatory complications; L97.812 Non-pressure chronic ulcer of other part of right lower leg with fat layer exposed; I87.313 Chronic venous hypertension (idiopathic) with ulcer of bilateral lower extremity; G35 Multiple sclerosis; I87.2 Venous insufficiency (chronic) (peripheral) ==

== ENCOUNTER → 2024-11-08 | Outpatient (CLI) | payer MEDICARE, OTHER ==
[2024-11-08 14:28] LABS: Creatinine, Urine Random 87.8 mg/dL (27.00-270.00); Microalb/Creat Ratio UR, Rand 171.982 mg/g (0.000-30.000); Microalbumin, Random Urine 151.0 mg/L (0.000-20.000); Protein, Urine Random 30.2 mg/dL (0.0-11.9); Protein/Creat Ratio, Ur Random 0.3
== END ==
LOC: LAB SHORT 11:22 → LAB 11:22
PROVIDERS: Hospitalist
DX: E11.42 Type 2 diabetes mellitus with diabetic polyneuropathy (principal); E11.22 Type 2 diabetes mellitus with diabetic chronic kidney disease; N18.32 Chronic kidney disease, stage 3b
CPT/HCPCS: 82043; 82570; 84156

== ENCOUNTER 2024-11-19 07:53 | Day surgery (SDC) | payer MEDICARE, OTHER | END 2024-11-19 23:00 | disposition home or self-care (01) | LOC: WOUND 07:53 | DX: E11.622 Type 2 diabetes mellitus with other skin ulcer (principal); I87.313 Chronic venous hypertension (idiopathic) with ulcer of bilateral lower extremity; L97.825 Non-pressure chronic ulcer of other part of left lower leg with muscle involvement without evidence of necrosis; L97.812 Non-pressure chronic ulcer of other part of right lower leg with fat layer exposed; E11.621 Type 2 diabetes mellitus with foot ulcer; L97.422 Non-pressure chronic ulcer of left heel and midfoot with fat layer exposed; G35 Multiple sclerosis; I87.2 Venous insufficiency (chronic) (peripheral); T25.231A Burn of second degree of right toe(s) (nail), initial encounter; X08.8XXA Exposure to other specified smoke, fire and flames, initial encounter ==

== ENCOUNTER 2024-11-22 01:12 | Day surgery (SDC) | payer MEDICARE, OTHER | END 2024-11-22 23:00 | disposition home or self-care (01) | LOC: WOUND 01:12 | DX: E11.622 Type 2 diabetes mellitus with other skin ulcer (principal); L97.825 Non-pressure chronic ulcer of other part of left lower leg with muscle involvement without evidence of necrosis; L97.812 Non-pressure chronic ulcer of other part of right lower leg with fat layer exposed; I87.313 Chronic venous hypertension (idiopathic) with ulcer of bilateral lower extremity; E11.621 Type 2 diabetes mellitus with foot ulcer; L97.422 Non-pressure chronic ulcer of left heel and midfoot with fat layer exposed; I87.2 Venous insufficiency (chronic) (peripheral); T25.221A Burn of second degree of right foot, initial encounter; G35 Multiple sclerosis ==

== ENCOUNTER 2024-11-27 04:30 | Day surgery (SDC) | payer MEDICARE, OTHER ==
[2024-11-27] MEDS ORDERED: Lidocaine HCl 4% Cream 5 GM ONE (15:40)
== END 2024-11-27 23:00 | disposition home or self-care (01) ==
LOC: WOUND 04:30
DX: E11.622 Type 2 diabetes mellitus with other skin ulcer (principal); I87.313 Chronic venous hypertension (idiopathic) with ulcer of bilateral lower extremity; L97.825 Non-pressure chronic ulcer of other part of left lower leg with muscle involvement without evidence of necrosis; L97.812 Non-pressure chronic ulcer of other part of right lower leg with fat layer exposed; E11.59 Type 2 diabetes mellitus with other circulatory complications; T25.221D Burn of second degree of right foot, subsequent encounter; G35 Multiple sclerosis; I87.2 Venous insufficiency (chronic) (peripheral)
CPT/HCPCS: A9270

== ENCOUNTER 2024-12-04 02:41 | Day surgery (SDC) | payer MEDICARE, OTHER | END 2024-12-04 23:00 | disposition home or self-care (01) | LOC: WOUND 02:41 | DX: E11.622 Type 2 diabetes mellitus with other skin ulcer (principal); I87.313 Chronic venous hypertension (idiopathic) with ulcer of bilateral lower extremity; L97.825 Non-pressure chronic ulcer of other part of left lower leg with muscle involvement without evidence of necrosis; L97.812 Non-pressure chronic ulcer of other part of right lower leg with fat layer exposed; T25.221A Burn of second degree of right foot, initial encounter; E11.59 Type 2 diabetes mellitus with other circulatory complications; G35 Multiple sclerosis; I87.2 Venous insufficiency (chronic) (peripheral); X08.8XXA Exposure to other specified smoke, fire and flames, initial encounter ==

== ENCOUNTER 2024-12-16 02:31 | Day surgery (SDC) | payer MEDICARE, OTHER | END 2024-12-16 23:00 | disposition home or self-care (01) | LOC: WOUND 02:31 | DX: E11.622 Type 2 diabetes mellitus with other skin ulcer (principal); L97.825 Non-pressure chronic ulcer of other part of left lower leg with muscle involvement without evidence of necrosis; L97.812 Non-pressure chronic ulcer of other part of right lower leg with fat layer exposed; I87.313 Chronic venous hypertension (idiopathic) with ulcer of bilateral lower extremity; E11.621 Type 2 diabetes mellitus with foot ulcer; L97.422 Non-pressure chronic ulcer of left heel and midfoot with fat layer exposed; T25.231D Burn of second degree of right toe(s) (nail), subsequent encounter; X08.8XXD Exposure to other specified smoke, fire and flames, subsequent encounter; I87.2 Venous insufficiency (chronic) (peripheral); G35 Multiple sclerosis ==

== ENCOUNTER 2024-12-27 00:21 | Day surgery (SDC) | payer MEDICARE, OTHER | END 2024-12-27 23:00 | disposition home or self-care (01) | LOC: WOUND 00:21 | DX: E11.622 Type 2 diabetes mellitus with other skin ulcer (principal); I87.313 Chronic venous hypertension (idiopathic) with ulcer of bilateral lower extremity; L97.822 Non-pressure chronic ulcer of other part of left lower leg with fat layer exposed; L97.812 Non-pressure chronic ulcer of other part of right lower leg with fat layer exposed; T25.221D Burn of second degree of right foot, subsequent encounter; E11.59 Type 2 diabetes mellitus with other circulatory complications; G35 Multiple sclerosis; I87.2 Venous insufficiency (chronic) (peripheral) ==

== ENCOUNTER 2025-01-01 02:27 | Day surgery (SDC) | payer MEDICARE, OTHER | END 2025-01-01 23:00 | disposition home or self-care (01) | LOC: WOUND 02:27 | DX: E11.622 Type 2 diabetes mellitus with other skin ulcer (principal); L97.822 Non-pressure chronic ulcer of other part of left lower leg with fat layer exposed; L97.812 Non-pressure chronic ulcer of other part of right lower leg with fat layer exposed; I87.313 Chronic venous hypertension (idiopathic) with ulcer of bilateral lower extremity; T25.231D Burn of second degree of right toe(s) (nail), subsequent encounter; X08.8XXD Exposure to other specified smoke, fire and flames, subsequent encounter; I87.2 Venous insufficiency (chronic) (peripheral); G35.D Multiple sclerosis, unspecified ==

== ENCOUNTER 2025-01-10 01:53 | Day surgery (SDC) | payer MEDICARE, OTHER | END 2025-01-10 23:00 | disposition home or self-care (01) | LOC: WOUND 01:53 | DX: E11.622 Type 2 diabetes mellitus with other skin ulcer (principal); I87.313 Chronic venous hypertension (idiopathic) with ulcer of bilateral lower extremity; L97.825 Non-pressure chronic ulcer of other part of left lower leg with muscle involvement without evidence of necrosis; L97.812 Non-pressure chronic ulcer of other part of right lower leg with fat layer exposed; T25.231A Burn of second degree of right toe(s) (nail), initial encounter; E11.621 Type 2 diabetes mellitus with foot ulcer; L97.512 Non-pressure chronic ulcer of other part of right foot with fat layer exposed; E11.59 Type 2 diabetes mellitus with other circulatory complications; G35.D Multiple sclerosis, unspecified ==

== ENCOUNTER 2025-01-16 03:07 | Day surgery (SDC) | payer MEDICARE, OTHER | END 2025-01-16 23:00 | disposition home or self-care (01) | LOC: WOUND 03:07 | DX: E11.622 Type 2 diabetes mellitus with other skin ulcer (principal); L97.812 Non-pressure chronic ulcer of other part of right lower leg with fat layer exposed; L97.825 Non-pressure chronic ulcer of other part of left lower leg with muscle involvement without evidence of necrosis; T25.231D Burn of second degree of right toe(s) (nail), subsequent encounter; X08.8XXD Exposure to other specified smoke, fire and flames, subsequent encounter; E11.621 Type 2 diabetes mellitus with foot ulcer; L97.512 Non-pressure chronic ulcer of other part of right foot with fat layer exposed; I87.313 Chronic venous hypertension (idiopathic) with ulcer of bilateral lower extremity; I87.2 Venous insufficiency (chronic) (peripheral); G35.D Multiple sclerosis, unspecified ==

== ENCOUNTER 2025-01-22 03:29 | Day surgery (SDC) | payer MEDICARE, OTHER | END 2025-01-22 23:00 | disposition home or self-care (01) | LOC: WOUND 03:29 | DX: E11.622 Type 2 diabetes mellitus with other skin ulcer (principal); E11.621 Type 2 diabetes mellitus with foot ulcer; L97.825 Non-pressure chronic ulcer of other part of left lower leg with muscle involvement without evidence of necrosis; I87.311 Chronic venous hypertension (idiopathic) with ulcer of right lower extremity; L97.512 Non-pressure chronic ulcer of other part of right foot with fat layer exposed; L97.812 Non-pressure chronic ulcer of other part of right lower leg with fat layer exposed; E11.51 Type 2 diabetes mellitus with diabetic peripheral angiopathy without gangrene; I25.10 Atherosclerotic heart disease of native coronary artery without angina pectoris; I50.9 Heart failure, unspecified; I11.0 Hypertensive heart disease with heart failure; T25.231D Burn of second degree of right toe(s) (nail), subsequent encounter ==

== ENCOUNTER 2025-01-29 00:53 | Day surgery (SDC) | payer MEDICARE, OTHER | END 2025-01-29 23:00 | disposition home or self-care (01) | LOC: WOUND 00:53 | DX: E11.622 Type 2 diabetes mellitus with other skin ulcer (principal); L97.825 Non-pressure chronic ulcer of other part of left lower leg with muscle involvement without evidence of necrosis; I87.313 Chronic venous hypertension (idiopathic) with ulcer of bilateral lower extremity; L97.812 Non-pressure chronic ulcer of other part of right lower leg with fat layer exposed; E11.621 Type 2 diabetes mellitus with foot ulcer; L97.512 Non-pressure chronic ulcer of other part of right foot with fat layer exposed; G35.D Multiple sclerosis, unspecified; T25.231D Burn of second degree of right toe(s) (nail), subsequent encounter; E11.40 Type 2 diabetes mellitus with diabetic neuropathy, unspecified; I11.0 Hypertensive heart disease with heart failure; I50.9 Heart failure, unspecified; J44.9 Chronic obstructive pulmonary disease, unspecified | CPT/HCPCS: 36415; 84443; 85027 ==

== ENCOUNTER 2025-02-05 01:55 | Day surgery (SDC) | payer MEDICARE, OTHER | END 2025-02-05 23:00 | disposition home or self-care (01) | LOC: WOUND 01:55 | DX: E11.622 Type 2 diabetes mellitus with other skin ulcer (principal); L97.825 Non-pressure chronic ulcer of other part of left lower leg with muscle involvement without evidence of necrosis; I87.312 Chronic venous hypertension (idiopathic) with ulcer of left lower extremity; T25.231D Burn of second degree of right toe(s) (nail), subsequent encounter; I25.10 Atherosclerotic heart disease of native coronary artery without angina pectoris; E11.51 Type 2 diabetes mellitus with diabetic peripheral angiopathy without gangrene; E11.40 Type 2 diabetes mellitus with diabetic neuropathy, unspecified; I50.9 Heart failure, unspecified ==

== ENCOUNTER 2025-02-12 10:36 | Day surgery (SDC) | payer MEDICARE, OTHER | END 2025-02-12 23:00 | disposition home or self-care (01) | LOC: WOUND 10:36 | DX: E11.622 Type 2 diabetes mellitus with other skin ulcer (principal); L97.825 Non-pressure chronic ulcer of other part of left lower leg with muscle involvement without evidence of necrosis; L97.811 Non-pressure chronic ulcer of other part of right lower leg limited to breakdown of skin; I87.313 Chronic venous hypertension (idiopathic) with ulcer of bilateral lower extremity; T25.221D Burn of second degree of right foot, subsequent encounter; X08.8XXD Exposure to other specified smoke, fire and flames, subsequent encounter; I87.2 Venous insufficiency (chronic) (peripheral); G35.D Multiple sclerosis, unspecified ==

== ENCOUNTER 2025-02-26 01:10 | Day surgery (SDC) | payer MEDICARE, OTHER | END 2025-02-26 23:00 | disposition home or self-care (01) | LOC: WOUND 01:10 | DX: E11.622 Type 2 diabetes mellitus with other skin ulcer (principal); I87.312 Chronic venous hypertension (idiopathic) with ulcer of left lower extremity; L97.825 Non-pressure chronic ulcer of other part of left lower leg with muscle involvement without evidence of necrosis; T25.231A Burn of second degree of right toe(s) (nail), initial encounter; E11.59 Type 2 diabetes mellitus with other circulatory complications; G35.D Multiple sclerosis, unspecified; I87.2 Venous insufficiency (chronic) (peripheral); X08.8XXA Exposure to other specified smoke, fire and flames, initial encounter ==

== ENCOUNTER 2025-03-05 00:31 | Day surgery (SDC) | payer MEDICARE, OTHER | END 2025-03-05 23:20 | disposition home or self-care (01) | LOC: WOUND 00:31 | DX: E11.622 Type 2 diabetes mellitus with other skin ulcer (principal); I87.313 Chronic venous hypertension (idiopathic) with ulcer of bilateral lower extremity; L97.825 Non-pressure chronic ulcer of other part of left lower leg with muscle involvement without evidence of necrosis; L97.512 Non-pressure chronic ulcer of other part of right foot with fat layer exposed; T25.231A Burn of second degree of right toe(s) (nail), initial encounter; G35.D Multiple sclerosis, unspecified; I87.2 Venous insufficiency (chronic) (peripheral); X08.8XXA Exposure to other specified smoke, fire and flames, initial encounter ==

== ENCOUNTER 2025-03-12 00:29 | Day surgery (SDC) | payer MEDICARE, OTHER | END 2025-03-12 23:00 | disposition home or self-care (01) | LOC: WOUND 00:29 | DX: E11.622 Type 2 diabetes mellitus with other skin ulcer (principal); L97.825 Non-pressure chronic ulcer of other part of left lower leg with muscle involvement without evidence of necrosis; I87.312 Chronic venous hypertension (idiopathic) with ulcer of left lower extremity; T25.221D Burn of second degree of right foot, subsequent encounter; X08.8XXD Exposure to other specified smoke, fire and flames, subsequent encounter; G35.D Multiple sclerosis, unspecified; I87.2 Venous insufficiency (chronic) (peripheral) ==

== ENCOUNTER 2025-03-19 01:24 | Day surgery (SDC) | payer MEDICARE, OTHER | END 2025-03-19 23:48 | disposition home or self-care (01) | LOC: WOUND 01:24 | DX: E11.622 Type 2 diabetes mellitus with other skin ulcer (principal); I87.313 Chronic venous hypertension (idiopathic) with ulcer of bilateral lower extremity; L97.825 Non-pressure chronic ulcer of other part of left lower leg with muscle involvement without evidence of necrosis; L97.512 Non-pressure chronic ulcer of other part of right foot with fat layer exposed; T25.221A Burn of second degree of right foot, initial encounter; G35.D Multiple sclerosis, unspecified; I87.2 Venous insufficiency (chronic) (peripheral); X08.8XXA Exposure to other specified smoke, fire and flames, initial encounter ==

== ENCOUNTER 2025-04-02 08:29 | Day surgery (SDC) | payer MEDICARE, OTHER | END 2025-04-02 23:00 | disposition home or self-care (01) | LOC: WOUND 08:29 | DX: E11.622 Type 2 diabetes mellitus with other skin ulcer (principal); L97.825 Non-pressure chronic ulcer of other part of left lower leg with muscle involvement without evidence of necrosis; T25.221D Burn of second degree of right foot, subsequent encounter; I87.2 Venous insufficiency (chronic) (peripheral); E11.59 Type 2 diabetes mellitus with other circulatory complications; G35.D Multiple sclerosis, unspecified; G47.30 Sleep apnea, unspecified; J44.89 Other specified chronic obstructive pulmonary disease; I25.119 Atherosclerotic heart disease of native coronary artery with unspecified angina pectoris; I50.9 Heart failure, unspecified; I25.2 Old myocardial infarction; E11.51 Type 2 diabetes mellitus with diabetic peripheral angiopathy without gangrene; E11.40 Type 2 diabetes mellitus with diabetic neuropathy, unspecified; B15.9 Hepatitis A without hepatic coma; Z79.4 Long term (current) use of insulin; Z79.890 Hormone replacement therapy; Z79.899 Other long term (current) drug therapy ==